=== PATIENT | female | born 1965 | race Caucasian/White ===

== ENCOUNTER 2019-12-05 08:29 | Inpatient (IN) | payer OTHER ==
[2019-12-05] MEDS ORDERED: NALOXONE 0.4 MG/ML 1 ML VIAL IV PRN (10:17)
[2019-12-05] MEDS ORDERED: FUROSEMIDE 10 MG/ML 4 ML VIAL IV STA (10:19)
[2019-12-05] MEDS ORDERED: HEPARIN SODIUM,PORCINE 5,000 UNIT/ML 1 ML VIAL IV PRN (10:26)
[2019-12-05] MEDS ORDERED: HEPARIN SOD,PORK IN 0.45% NACL 25,000 UNIT in 0.45% NACL 1 250ML.BAG IV SCH (10:30)
--- NOTE | 2019-12-05 10:30 | XR ---
EXAMINATION TYPE: XR chest 1V DATE OF EXAM: 12/05/2019 HISTORY: chf. REFERENCE: Previous study dated 03/04/2016. FINDINGS: The heart is enlarged. There is increased density behind the heart. The difficult to exclud e a left lower lobe infiltrate. There is blunting of the left CP angle and I could not exclude an eff usion. IMPRESSION: 1. CARDIOMEGALY. 2. LEFT BASILAR AIRSPACE DISEASE. I COULD NOT EXCLUDE A LEFT-SIDED EFFUSION.
[2019-12-05 10:36] LABS: ABG HCO3 23 mmol/L (21-25); ABG PCO2 38 mmHg (35-45); ABG PH 7.39 (7.35-7.45); ABG PO2 231 mmHg (83-108); ABG TCO2 24 mmol/L (19-24); Allen Test Performed? Yes
[2019-12-05] MEDS ORDERED: ALPRAZolam 0.5 MG TAB PO PRN (11:02)
[2019-12-05] MEDS ORDERED: NITROGLYCERIN SL TABS 0.4 MG TAB SUBLINGUAL PRN (11:02)
[2019-12-05] MEDS ORDERED: SODIUM CHLORIDE 0.9% 1,000 ML in EMPTY BAG 1 BAG IV ONE (11:02)
[2019-12-05] MEDS ORDERED: ASPIRIN 325 MG TAB PO STA (11:02)
[2019-12-05] MEDS ORDERED: ATORVASTATIN 80 MG TAB PO STA (11:02)
[2019-12-05 11:10] LABS: Basophils % (A) 0 %; Eosinophils # (A) 0.1 k/uL (0-0.7); Eosinophils % (A) 1 %; HCT 49.8 % (34.0-46.0); HGB 15.4 gm/dL (11.4-16.0); Hypochromasia Moderate; Lymphocytes # (A) 2.4 k/uL (1.0-4.8); Lymphocytes % (A) 17 %; MCHC 30.9 g/dL (31.0-37.0); MCV 100.1 fL (80.0-100.0); Macrocytosis Slight; Mean Platelet Volume 8.6; Monocytes # (A) 0.4 k/uL (0-1.0); Monocytes % (A) 3 %; Neutrophils # (A) 11.2 k/uL (1.3-7.7); Neutrophils % (A) 79 %; Platelet Count 203 k/uL (150-450); RBC 4.97 m/uL (3.80-5.40); RDW 14.9 % (11.5-15.5); WBC 14.3 k/uL (3.8-10.6)
[2019-12-05 11:21] LABS: Calcium 9.3 mg/dL (8.4-10.2); Potassium 4.2 mmol/L (3.5-5.1)
[2019-12-05 11:25] LABS: Partial Thromboplastin Time 34.2 sec (22.0-30.0); Prothrombin Time 10.5 sec (9.0-12.0)
[2019-12-05] MEDS ORDERED: IPRATROPIUM-ALBUTEROL 3 ML NEB INHALATION PRN (11:29)
--- NOTE | 2019-12-05 11:29 | P.CNPUL ---
History of Present Illness Consult date: 12/05/19 Requesting physician: Ceferino Ashley Reason for consult: dyspnea Chief complaint: Shortness of breath History of present illness: This is a 53-year-old female with known history of COPD, tobacco dependence syndrome, patient presented to [facility] on 12/04/19 with 10 days history of increased shortness of breath. Patient had profound dyspnea on exertion. No cough no wheezing no fever no chills no hemoptysis. Her shortness of breath has become significantly pronounced over the last 10 days. Patient was seen in the ER at [facility], and workup included a chest x- ray which showed cardiomegaly and small left pleural effusion. EKG showed no significant findings, her troponin was slightly elevated with elevated BNP level. Patient was admitted, placed on bronchodilators, Solu-Medrol, aspirin, beta blockers, IV heparin, and she was seen by many consultants while inpatient including cardiology and pulmonary. Her echocardiogram showed severe LV systolic and diastolic dysfunction and ejection fraction was noted to be about 10%. She was also noted to have some pulmonary hypertension with right-sided pressures in the range of 46. Considering her profound LV dysfunction, Dr. Barrett recommended transferring the patient to [facility], and she is scheduled to undergo cardiac catheterization this morning. Upon arrival to our unit, the chest x-ray was done, again showed mostly cardiomegaly, left pleural effusion, and left lower lobe atelectasis. ABG done upon arrival also showed a pO2 of 231 pCO2 of 38 pH of 7.39 and this was on the percent nonrebreather mask. Hence patient was switched to 2 L nasal cannula. Patient denies any previous cardiac history except for history of hypertension. Denies any recent use history of myocardial infarction and she denies any history of alcoholism. Patient is at least a [id number] smoker. Does not drink any alcohol or use any drugs. Review of Systems Constitutional: Weakness fatigue, no fever, no chills, no weight loss. HEENT: Negative. Cardiac: As noted in HPI. Patient denies any chest pain, denies any palpitations, denies any syncope. Pulmonary: As noted in HPI mostly shortness of breath with any activity for the last 10 days. GI: Denies any nausea vomiting abdominal pain melena or hematemesis. Genitourinary: Negative. Musculoskeletal: Negative. Skin: Negative. Endocrine: Negative denies any heat or cold intolerance. Hematologic: Denies any clotting bleeding or bruising Psychiatric: Denies any symptoms of depression. Past Medical History Past Medical History: Asthma, Hypertension History of Any Multi-Drug Resistant Organisms: None Reported Past Surgical History: Cholecystectomy, Hysterectomy Additional Past Surgical History / Comment(s): breast reduction Past Psychological History: No Psychological Hx Reported Smoking Status: Current every day smoker Past Alcohol Use History: None Reported Past Drug Use History: None Reported Medications and Allergies Home Medications Medication Instructions Recorded Confirmed Type Albuterol Inhaler (Mhu) [Ventolin 2 puff INHALATION Q4HR PRN #1 03/04/16 Rx Hfa Inhaler (Mhu)] inhaler Albuterol Inhaler (Mhu) [Ventolin 1 - 2 puff INHALATION RT-Q6H PRN 03/04/16 03/04/16 History Hfa Inhaler] Albuterol Nebulized [Ventolin 2.5 mg INHALATION Q4H #50 nebu 03/04/16 Rx Nebulized] Albuterol Nebulized [Ventolin 2.5 mg INHALATION RT-Q4H PRN 03/04/16 03/04/16 History Nebulized] predniSONE 50 mg PO DAILY #5 tab 03/04/16 Rx Allergies Allergy/AdvReac Type Severity Reaction Status Date / Time egg AdvReac Nausea & Verified 03/04/16 19:26 Vomiting & Diarrhea Physical Exam Vitals: Intake and Output 12/04/19 12/05/19 12/05/19 22:59 06:59 14:59 Other: Weight 75.8 kg Physical Exam: Revealed 53-year-old female in [id number] respiratory distress. Head: Atraumatic, normocephalic. HEENT:[Neck is supple.] [No neck masses.] [No thyromegaly.] [No JVD.] Chest: [Diminished breath sounds especially at the left base, minimal wheezing on forced expiratory maneuver only. Cardiac Exam: [Normal S1 and S2, no S3 gallop, no murmur.] Abdomen: [Soft, nontender, no megaly, no rebound, no guarding, normal bowel sounds.] Extremities: [No clubbing, no edema, no cyanosis.] Neurological Exam: [No focal neurologic deficit.] Alert and oriented 3. Psychiatric: Anxious, blunt affect, normal mental status examination. Skin: Multiple tattoos all over, otherwise unremarkable. Musculoskeletal: No limitation in range of motion and no deformities. Results - Laboratory Findings CBC and BMP: 12/05/19 10:44 ABG ABG pH 7.39 (7.35-7.45) 12/05/19 10:34 ABG pCO2 38 mmHg (35-45) 12/05/19 10:34 ABG pO2 231 mmHg (83-108) H 12/05/19 10:34 ABG O2 Saturation 98.0 % (94-97) H 12/05/19 10:34 Abnormal lab findings: Abnormal Labs 12/05/19 12/05/19 10:34 10:44 WBC 14.3 H Hct 49.8 H MCV 100.1 H MCHC 30.9 L Neutrophils # 11.2 H ABG pO2 231 H ABG O2 Saturation 98.0 H - Diagnostic Findings Chest x-ray: image reviewed (As noted in HPI.) Assessment and Plan Assessment: Impression: Shortness of breath secondary to severe systolic and diastolic congestive heart failure and LV dysfunction. Ejection fraction is 10-20%. Possible ischemic cardiomyopathy and LV dysfunction, patient is undergoing cardiac catheterization in the next couple of hours. Acute kidney injury suspected cardiorenal syndrome, unless proven otherwise. History of benign essential hypertension. Small left pleural effusion, felt to be cardiac unless for otherwise. History of underlying COPD, presently inactive. Her shortness of breath seems to be mostly cardiac in nature. Tobacco dependence syndrome. Recommendation: Agree with the present treatment plan as per cardiology. Patient is scheduled for cardiac catheterization in the next couple of hours. Continue diuretics. Continue beta blockers. Continue bronchodilators. Ordered d-dimer, consider CT angiogram of the chest, in the meantime the patient is on heparin Continue GI and DVT prophylaxis. Repeat chest x-ray in a.m. We'll continue to follow, will review the results of the cardiac catheterization once available. An make further recommendations accordingly. Time with Patient: Greater than 30
[2019-12-05] MEDS ORDERED: IV FLUID CONTINUATION 1,000 ML IV ONE (12:55)
[2019-12-05] MEDS ORDERED: VERAPAMIL 2.5 MG/ML 2 ML AMP ONE (12:56)
[2019-12-05] MEDS ORDERED: HEPARIN SODIUM 1,000 UN/ML (10ML VL) ONE (12:56)
[2019-12-05] MEDS ORDERED: fentaNYL (PF) 50 MCG/ML 2 ML AMP ONE (12:56)
[2019-12-05] MEDS ORDERED: LIDOCAINE 1% INJ 10MG/ML (20 ML MDV) ONE (12:56)
[2019-12-05 13:06] LABS: Appearance,Urine Clear (Clear); Bilirubin,Urine Negative (Negative); Blood,Urine Trace (Negative); Color,Urine Yellow; Glucose,Urine (UA) Negative (Negative); Ketones,Urine Negative (Negative); Leukocyte Esterase,Urine Negative (Negative); Nitrite,Urine Negative (Negative); PH, Urine 5.5 (5.0-8.0); Protein,Urine Negative (Negative); RBC,Urine 1 /hpf (0-5); Squamous Epithelial Cell,Urine <1 /hpf (0-4); WBC,Urine <1 /hpf (0-5)
[2019-12-05] MEDS ORDERED: fentaNYL (PF) 50 MCG/ML 2 ML AMP IV ONE (13:06)
[2019-12-05] MEDS ORDERED: LIDOCAINE 1% INJ 10MG/ML (20 ML MDV) SQ ONE (13:08)
[2019-12-05] MEDS ORDERED: VERAPAMIL SYRINGE (5 MG/10 ML) INTRAARTER ONE (13:10)
[2019-12-05] MEDS ORDERED: MIDAZOLAM 2 MG/2 ML VIAL IVP ONE (13:11)
[2019-12-05] MEDS ORDERED: HEPARIN SODIUM 1,000 UN/ML (10ML VL) IV ONE ×2 (13:16)
[2019-12-05] MEDS ORDERED: IOPAMIDOL-370 125ML BTL INJ ONE (13:18)
[2019-12-05] MEDS ORDERED: FLUMAZENIL 0.1 MG/ML 5 ML VIAL IVP ONE ×2 (13:20→13:22)
[2019-12-05] MEDS ORDERED: RX INFO: IV CONTRAST WAS GIVEN 1 EACH MISC MISCELLANE PRN (13:25)
[2019-12-05] MEDS ORDERED: SODIUM CHLORIDE 0.9% 1,000 ML IV SCH (13:30)
--- NOTE | 2019-12-05 13:36 | P.HPIM ---
History of Present Illness H&P Date: 12/05/19 Chief Complaint: Non-ST elevation IN 53-year-old female with known history of COPD, presented to [facility] on 12/04/19 with increased shortness of breath. Patient had profound dyspnea on exertion. Patient was seen in the ER at [facility], and workup included a chest x-ray which showed cardiomegaly and small left pleural effusion. EKG showed no significant findings, her troponin was slightly elevated with elevated BNP level. Patient was admitted, placed on bronchodilators, Solu-Medrol, aspirin, beta blockers, IV heparin, and she was seen by many consultants while inpatient including cardiology and pulmonary. Her echocardiogram showed severe LV systolic and diastolic dysfunction and ejection fraction was noted to be about 10%. Cardiology recommended transferring the patient to [facility], and she is scheduled to undergo cardiac catheterization this morning. Upon arrival to ICU, the chest x-ray was done, again showed mostly cardiomegaly, left pleural effusion, and left lower lobe atelectasis. ABG done upon arrival also showed a pO2 of 231 pCO2 of 38 pH of 7.39 and this was on the percent nonrebreather mask. Hence patient was switched to 2 L nasal cannula. Patient denies any previous cardiac history except for history of hypertension. Review of Systems REVIEW OF SYSTEMS: CONSTITUTIONAL: No fever, no malaise, no fatigue. HEENT: No recent visual problems or hearing problems. Denied any sore throat. CARDIOVASCULAR: No chest pain, orthopnea, PND, no palpitations, no syncope. PULMONARY: No shortness of breath, no cough, no hemoptysis. GASTROINTESTINAL: No diarrhea, no nausea, no vomiting, no abdominal pain. NEUROLOGICAL: No headaches, no weakness, no numbness. HEMATOLOGICAL: Denies any bleeding or petechiae. GENITOURINARY: Denies any burning micturition, frequency, or urgency. MUSCULOSKELETAL/RHEUMATOLOGICAL: Denies any joint pain, swelling, or any muscle pain. ENDOCRINE: Denies any polyuria or polydipsia. The rest of the 14-point review of systems is negative. Past Medical History Past Medical History: Asthma, Hypertension History of Any Multi-Drug Resistant Organisms: None Reported Past Surgical History: Cholecystectomy, Hysterectomy Additional Past Surgical History / Comment(s): breast reduction Past Psychological History: No Psychological Hx Reported Smoking Status: Current every day smoker Past Alcohol Use History: None Reported Past Drug Use History: None Reported Medications and Allergies Home Medications Medication Instructions Recorded Confirmed Type No Known Home Medications 12/05/19 12/05/19 History Allergies Allergy/AdvReac Type Severity Reaction Status Date / Time egg AdvReac Nausea & Verified 12/05/19 12:00 Vomiting & Diarrhea Physical Exam Vitals: Vital Signs Temp Pulse Resp BP Pulse Ox 12/05/19 12:15 96.6 F L 12/05/19 12:14 95 F L 12/05/19 11:50 73 9 L 95 12/05/19 11:40 61 14 95 12/05/19 11:30 70 4 L 95 12/05/19 11:20 61 6 L 97 12/05/19 11:10 62 5 L 136/94 97 12/05/19 11:00 76 30 H 95 12/05/19 10:50 67 17 97 12/05/19 10:40 64 5 L 99 12/05/19 10:30 73 21 97 12/05/19 10:20 78 11 L 97 12/05/19 10:10 73 18 91 L 12/05/19 10:02 97.7 F 75 19 121/95 92 L Intake and Output 12/04/19 12/05/19 12/05/19 22:59 06:59 14:59 Intake Total 85.654 Output Total 500 Balance -414.346 Intake: IV 75.8 Sodium Chloride 0.9% 1, 75.8 000 ml In Empty Bag 1 bag @ 1 ML/KG/HR 75.8 mls/hr IV .[id number] Rx#: [id number] Intake, IV Titration 9.854 Amount Heparin Sod,Pork in 0.45% 9.854 NaCl 25,000 unit In 0.45 % NaCl 1 250ml.bag @ 12 UNITS/KG/HR 9.096 mls/hr IV .Q24H [facility] Rx#: [id number] Output: Urine 500 Other: # Voids 1 Weight 75.8 kg Physical Exam: Revealed 53-year-old female in isrx-li-ejoseabh respiratory distress. Head: Atraumatic, normocephalic. HEENT:[Neck is supple.] [No neck masses.] [No thyromegaly.] [No JVD.] Chest: [Diminished breath sounds especially at the left base, minimal wheezing on forced expiratory maneuver only. Cardiac Exam: [Normal S1 and S2, no S3 gallop, no murmur.] Abdomen: [Soft, nontender, no megaly, no rebound, no guarding, normal bowel sounds.] Extremities: [No clubbing, no edema, no cyanosis.] Neurological Exam: [No focal neurologic deficit.] Alert and oriented 3. Psychiatric: Anxious, blunt affect, normal mental status examination. Skin: Multiple tattoos all over, otherwise unremarkable. Musculoskeletal: No limitation in range of motion and no deformities. Results CBC & Chem 7: 12/05/19 10:44 12/05/19 10:44 Labs: Abnormal Lab Results - Last 24 Hours (Table) 12/05/19 12/05/19 12/05/19 Range/Units 10:34 10:44 10:44 WBC 14.3 H (3.8-10.6) k/uL Hct 49.8 H (34.0-46.0) % MCV 100.1 H (80.0-100.0) fL MCHC 30.9 L (31.0-37.0) g/dL Neutrophils # 11.2 H (1.3-7.7) k/uL APTT 34.2 H (22.0-30.0) sec ABG pO2 231 H (83-108) mmHg ABG O2 Saturation 98.0 H (94-97) % BUN (7-17) mg/dL Creatinine (0.52-1.04) mg/dL Glucose (74-99) mg/dL 12/05/19 Range/Units 10:44 WBC (3.8-10.6) k/uL Hct (34.0-46.0) % MCV (80.0-100.0) fL MCHC (31.0-37.0) g/dL Neutrophils # (1.3-7.7) k/uL APTT (22.0-30.0) sec ABG pO2 (83-108) mmHg ABG O2 Saturation (94-97) % BUN 34 H (7-17) mg/dL Creatinine 1.11 H (0.52-1.04) mg/dL Glucose 132 H (74-99) mg/dL Assessment and Plan Assessment: 1. Dyspnea; severe systolic/diastolic CHF - Pulmonary service is following and is recommending checking d-dimer along with CT angiogram of the chest - Patient is currently on IV heparin for non-ST elevation IN 2. Severe cardiomyopathy; possibly ischemic; patient is scheduled for left heart catheterization today; continue with aspirin, statin therapy, beta blockers 3. Acute renal injury; cautious IV fluid hydration with normal saline at rate of 75 mL an hour; cardiology is following and patient is started on Aldactone 25 mg daily; we will continue to monitor strict KEYUR's, daily weights, renal function and electrolytes; continue to avoid nephrotoxic agents and hypotension 4. Hypertension; Lopressor 25 mg twice a day, lisinopril 5 mg daily, Aldactone 25 mg daily 5. COPD; not in exacerbation 6. Hyperlipidemia; Lipitor 80 mg by mouth daily at bedtime DVT prophylaxis; SCDs/systemic anticoagulation with heparin CODE STATUS; full code Time with Patient: Greater than 30
[2019-12-05] MEDS: SPIRONOLACTONE 25 MG TAB PO SCH (15:03)
[2019-12-05] MEDS: FUROSEMIDE 20 MG TAB PO SCH (15:38)
--- NOTE | 2019-12-05 17:14 | CC ---
CARDIAC CATHETERIZATION REPORT Mrs Starks is a 53-year-old female with known history of chronic tobacco use, prior history of hypertension who presented to [facility] with symptoms of congestive heart failure, chest tightness with minimal troponin elevated elevation. She was noted to have severe cardiomyopathy by echocardiography. In view of her presentation and her symptoms, recommendation made regarding cardiac catheterization. The procedures, risks, and complications were discussed with the patient who is in full understanding and agreement. PROCEDURE DETAILS: Patient was brought to laborer driver in a fasting semi-sedated state after receiving fentanyl and Benadryl and achieving moderate conscious sedated state. Using Xylocaine anesthesia and Seldinger technique, a 6-Monegasque sheath was introduced in the right radial artery. Selective right and left coronary angiography performed using 5-Monegasque 3 and half bend right and left Berlin catheter. Multiple views of the coronary arteries including hemiaxial views were obtained. The 5-Monegasque Berlin catheter was used to cross the aortic valve and pressures were calculated. Following that, catheter and sheath were removed. Hemostasis was obtained with deployment of a TR band. There was no immediate complications. Patient is returned to her room in stable condition. Of note, the patient received 4000 units of intravenous heparin as well as intra- arterial verapamil. FINDINGS: FLUOROSCOPY: There is calcification involving all the coronary arteries. SELECTIVE CORONARY ANGIOGRAPHY: LEFT MAIN: This is a short size vessel large in caliber bifurcating into left circumflex, left anterior descending artery, left main coronary artery has no evidence of high-grade stenosis. LEFT ANTERIOR DESCENDING ARTERY: This is a large-sized vessel reaching to the apex with a wraparound apex segment giving rise to 3 diagonal branch. The second one is largest in caliber the left and descending artery throughout its course has diffuse intimal disease with area of stenosis up to 30% to 40% without any discrete high-grade stenosis. LEFT CIRCUMFLEX: This is a nondominant vessel giving rise to 2 obtuse marginal branches of large caliber. The left circumflex has diffuse intimal disease up to 30% to 40% without any evidence of high-grade stenosis. RIGHT CORONARY ARTERY: This is a dominant vessel, moderate in caliber, bifurcating distally into PDA and posterolateral segment and branches. The right coronary artery has diffuse intimal disease up to 30 percent. HEMODYNAMICS: There was no gradient across the aortic valve. The left ventricle end-diastolic pressure was 20-24 mmHg. CONCLUSION: 1. Calcified coronary arteries. 2. Moderate triple-vessel coronary disease. RECOMMENDATIONS: In view of findings and anatomy, I recommend proceeding with continued medical therapy, optimizing her treatment. Her findings are consistent with nonischemic cardiomyopathy. If there is no improvement in left ventricular systolic function, she will be a candidate for ICD implantation. Those findings and recommendations were discussed with the patient. She is in full understanding and agreement. RADHA / JOANN: [id number] /
[2019-12-05] MEDS ORDERED: NITROGLYCERIN OINT 1 INCH/GM PACKET TOPICAL SCH (18:00)
[2019-12-05] MEDS: METOPROLOL TARTRATE 25 MG TAB PO SCH (20:39)
[2019-12-05] MEDS ORDERED: FUROSEMIDE 10 MG/ML 2 ML VIAL IV SCH (21:00)
[2019-12-05] MEDS ORDERED: ATORVASTATIN 40 MG TAB PO SCH (21:00)
[2019-12-05] MEDS: ALPRAZolam 0.25 MG TAB PO PRN (23:45)
[2019-12-06 05:59] LABS: Basophils # (A) 0.1 k/uL (0-0.2); Basophils % (A) 1 %; Eosinophils # (A) 0.1 k/uL (0-0.7); Eosinophils % (A) 1 %; HCT 50.2 % (34.0-46.0); HGB 15.7 gm/dL (11.4-16.0); Hypochromasia Marked; Lymphocytes # (A) 4.2 k/uL (1.0-4.8); Lymphocytes % (A) 29 %; MCH 31.6 pg (25.0-35.0); MCHC 31.2 g/dL (31.0-37.0); MCV 101.5 fL (80.0-100.0); Macrocytosis Slight; Monocytes # (A) 0.7 k/uL (0-1.0); Monocytes % (A) 5 %; Neutrophils # (A) 9.5 k/uL (1.3-7.7); Neutrophils % (A) 64 %; Platelet Count 207 k/uL (150-450); RBC 4.95 m/uL (3.80-5.40); RDW 15.1 % (11.5-15.5); WBC 14.7 k/uL (3.8-10.6)
[2019-12-06 06:51] LABS: Calcium 9.2 mg/dL (8.4-10.2); Potassium 4.7 mmol/L (3.5-5.1)
--- NOTE | 2019-12-06 07:24 | PN ---
PROGRESS NOTE Mrs. Starks is a 53-year-old female with history of chronic tobacco use, history of hypertension who presented to [facility] with an acute episode of dyspnea was noted to have congestive heart failure with severely impaired left ventricular systolic function. She was transferred to [facility], underwent cardiac catheterization, was found to have [id number] triple-vessel coronary disease. She is feeling better today. She still has some dyspnea. No chest pain. No dizziness. No palpitation. She denies any nausea. She is in sinus mechanism. She continued to be on aspirin once a day, Lipitor 40 mg daily, Lasix 20 mg twice a day, Zestril 5 mg daily, metoprolol tartrate 25 mg twice a day and Aldactone 25 mg daily. PHYSICAL EXAMINATION: Blood pressure running in the one teens to 120s with the heart rate in 60s. LUNGS: A few crackles at the bases. HEART: Regular rate and rhythm. S1, S2. No S3. No rub. ABDOMEN: Soft, nontender. EXTREMITIES: No edema. Right radial pulse intact. LAB DATA: Lab data revealed hemoglobin of 15.7. BUN and creatinine 38 and 1.03. IMPRESSION: 1. Severe nonischemic cardiomyopathy. 2. Mild to moderate coronary artery disease. 3. History of chronic tobacco use. 4. Hypertension. RECOMMENDATION: I will increase the dose of her lisinopril. Increase her activity. Discontinue her Augustin. I would expect she should be able to be transferred to telemetry floor and depending on her progress, further recommendation will be made. MMODL / IJN: [id number] /
[2019-12-06] MEDS: METOPROLOL TARTRATE 25 MG TAB PO SCH ×2 (08:26→20:33)
[2019-12-06] MEDS: LISINOPRIL 5 MG TAB PO SCH ×2 (08:26→20:33)
[2019-12-06] MEDS: ASPIRIN 81 MG PO SCH (08:26)
[2019-12-06] MEDS: SPIRONOLACTONE 25 MG TAB PO SCH (08:27)
[2019-12-06] MEDS: FUROSEMIDE 20 MG TAB PO SCH ×2 (08:27→15:40)
[2019-12-06] MEDS ORDERED: ASPIRIN 325 MG TAB PO SCH (09:00)
[2019-12-06] MEDS ORDERED: PANTOPRAZOLE 40 MG/10 ML VIAL IV SCH (09:00)
[2019-12-06] MEDS ORDERED: LISINOPRIL 5 MG TAB PO SCH (09:00)
--- NOTE | 2019-12-06 12:57 | PN ---
PROGRESS NOTE A 53-year-old female who was admitted to the hospital on December 04. 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 Apparently, no interventions were done. She apparently has a history of both systolic and diastolic heart failure. Ejection fraction is between 10%-20%. She has a history of ischemic cardiomyopathy, acute kidney injury, cardiorenal syndrome, benign essential hypertension, small left-sided pleural effusion, underlying inactive COPD, and tobacco dependence syndrome. In addition, the patient apparently has used cocaine in the past. Currently, she is resting comfortably. She is on room air. She is not receiving any IV fluids. The cardiac catheterization done yesterday by Dr. Barrett revealed calcified coronary arteries and only moderate triple-vessel coronary artery disease. Medical management is recommended. Also, because her ejection fraction is so low, an AICD would be indicated potentially. Currently, the patient has no major complaints. Vital signs are reviewed, temperature 98.2, heart rate 59, respiratory rate 18, blood pressure 183/84, room air and saturations is 98%. Appears in no acute distress. HEENT: Examination is grossly unremarkable. No nasal prongs noted. NECK: Supple, full range of motion. No adenopathy, thyromegaly or neck vein distention. CARDIOVASCULAR: Examination reveals regular rhythm and rate. Heart rate 60 beats per minute. Heart sounds are distant. No distinct murmurs noted. LUNGS: Reveal mostly clear breath sounds. A few scattered rhonchi. No wheezes or crackles. Abdomen soft bowel sounds are heard. EXTREMITIES: Intact. No cyanosis, clubbing, or edema. SKIN: Without rash. NEUROLOGIC: Examination is brief but nonfocal. LABS: Reviewed. White count 14.7, hemoglobin 15.7, hematocrit 50.2, platelet count 207,000, PT, INR, PTT is all essentially within normal limits. D-dimer 0.53. Blood gases showed a pO2 of 231, pCO2 of 38k pH of 7.39. That was yesterday on 100%. Sodium 138, potassium 4.7, chloride 107, CO2 is 22, anion gap is 9. BUN and creatinine were 38 and 1.03. Urine is clean. Chest x-ray shows some cardiomegaly, and left basilar airspace disease with a small left-sided effusion. Microbiology is all negative. MEDICATIONS: Reviewed. Currently, the patient is on Xanax, aspirin, Lipitor, Lasix, DuoNeb, lisinopril, metoprolol, Narcan, sublingual nitroglycerin, Protonix, and Aldactone. ASSESSMENT: 1. Shortness of breath, improved, secondary to severe systolic and diastolic congestive heart failure with ejection fraction of 10%-20%. 2. Ischemic cardiomyopathy with LV dysfunction. The patient does have moderate triple- vessel coronary artery disease, and catheterization was performed yesterday without additional stenting. 3. Acute kidney injury. 4. Possible cardiorenal syndrome. 5. History of benign essential hypertension. 6. Small left-sided pleural effusion. 7. History of underlying COPD, probably secondary to ongoing tobacco use and tobacco dependence syndrome. PLAN: Currently, the patient is a candidate for 3 [place]. She is doing reasonably well. Not receiving any fluids or supplemental oxygen. Will continue to follow as needed. Prognosis is very guarded. She will be evaluated by Cardiology for automatic implantable cardiac defibrillator. MMODL / IJN: [id number] /
--- NOTE | 2019-12-06 13:18 | P.PN ---
Subjective 53-year-old the female was admitted for heart failure with EF of around 10-20% EF dizziness finding because of which the patient underwent cardiac c atheterization which showed mild atherosclerotic vascular disease but no significant atherosclerotic occlusive disease that can explain her heart failure. Patient shortness of breath significantly improved patient is presently on low-dose of oral Lasix along with beta lorenzo and lisinopril. Patient is being transferred E. Her coronaries several calcified with only some moderate disease in all 3 coronaries. Constitutional: Denied any fatigue denied any fever. Cardio vascular: denied any chest pain, palpitations Gastrointestinal denied any nausea vomiting Pulmonary: Denied any shortness of breath cough Neurologic denied any new focal deficits All inpatient medications were reviewed and appropriate changes in these medications as dictated in the interval history and assessment and plan. Objective - Vital Signs Vital signs: Vital Signs Temp 93 F L 12/06/19 12:00 Pulse 59 L 12/06/19 12:00 Resp 22 12/06/19 12:00 BP 121/71 12/06/19 12:00 Pulse Ox 97 12/06/19 12:00 Intake & Output 12/05/19 12/06/19 12/06/19 18:59 06:59 18:59 Intake Total 485.654 560 0 Output Total 870 600 75 Balance -384.346 -40 -75 Weight 75.8 kg 74 kg Intake: IV 475.8 560 0 Sodium Chloride 0.9% 1, 375.8 560 0 000 ml In Empty Bag 1 bag @ 1 ML/KG/HR 75.8 mls/hr IV .[id number] ONE Rx#: [id number] Intake, IV Titration 9.854 Amount Heparin Sod,Pork in 0.45% 9.854 NaCl 25,000 unit In 0.45 % NaCl 1 250ml.bag @ 12 UNITS/KG/HR 9.096 mls/hr IV .Q24H [facility] Rx#: [id number] Output: Urine 870 600 75 Other: Voiding Method Indwelling Catheter Indwelling Catheter Toilet # Voids 1 - Exam PHYSICAL EXAMINATION: GENERAL: The patient is alert and oriented x3, not in any acute distress. Well developed, well nourished. HEENT: Pupils are round and equally reacting to light. EOMI. No scleral icterus. No conjunctival pallor. Normocephalic, atraumatic. No pharyngeal erythema. No thyromegaly. CARDIOVASCULAR: S1 and S2 present. No murmurs, rubs, or gallops. PULMONARY: Chest is clear to auscultation, no wheezing or crackles. ABDOMEN: Soft, nontender, nondistended, normoactive bowel sounds. No palpable organomegaly. MUSCULOSKELETAL: No joint swelling or deformity. EXTREMITIES: No cyanosis, clubbing, or pedal edema. NEUROLOGICAL: Gross neurological examination did not reveal any focal deficits. SKIN: No rashes. - Labs CBC & Chem 7: 12/06/19 05:21 12/06/19 05:21 Labs: Abnormal Lab Results - Last 24 Hours (Table) 12/06/19 12/06/19 Range/Units 05:21 05:21 WBC 14.7 H (3.8-10.6) k/uL Hct 50.2 H (34.0-46.0) % MCV 101.5 H (80.0-100.0) fL Neutrophils # 9.5 H (1.3-7.7) k/uL BUN 38 H (7-17) mg/dL Glucose 117 H (74-99) mg/dL Assessment and Plan Plan: -Congestive heart failure nonischemic cardiomyopathy with acute exacerbation patient is presently euvolemic continue with the above-mentioned medications for heart failure. Her systolic dysfunction is probably acute on chronic with EF of around 10-20% -Acute renal failure feel azotemia secondary to kidney failure which improved at this time -Hypertension -Pleural effusion secondary to heart failure -Nicotine abuse with possible COPD without any acute exacerbation at this time -Hyperlipidemia continue with the statin
[2019-12-06] MEDS: ATORVASTATIN 40 MG TAB PO SCH (20:33)
[2019-12-07 05:51] LABS: Basophils # (A) 0.1 k/uL (0-0.2); Basophils % (A) 1 %; Eosinophils # (A) 0.2 k/uL (0-0.7); Eosinophils % (A) 2 %; HCT 45.1 % (34.0-46.0); HGB 14.7 gm/dL (11.4-16.0); Lymphocytes # (A) 3.2 k/uL (1.0-4.8); Lymphocytes % (A) 36 %; MCH 31.8 pg (25.0-35.0); MCHC 32.6 g/dL (31.0-37.0); MCV 97.6 fL (80.0-100.0); Macrocytosis Slight; Mean Platelet Volume 8.7; Monocytes # (A) 0.4 k/uL (0-1.0); Monocytes % (A) 5 %; Neutrophils # (A) 4.9 k/uL (1.3-7.7); Neutrophils % (A) 55 %; Platelet Count 139 k/uL (150-450); RBC 4.62 m/uL (3.80-5.40); RDW 15.4 % (11.5-15.5); WBC 8.8 k/uL (3.8-10.6)
[2019-12-07 06:02] LABS: Calcium 8.8 mg/dL (8.4-10.2); Potassium 3.8 mmol/L (3.5-5.1)
[2019-12-07] MEDS: PANTOPRAZOLE 40 MG TABLET PO SCH (06:48)
--- NOTE | 2019-12-07 07:32 | PN ---
PROGRESS NOTE Ms. Starks is a 53-year-old female with a history of hypertension, chronic tobacco use, who presented with symptoms of progressive congestive heart failure and was found to have severe nonischemic cardiomyopathy, underwent cardiac catheterization with no evidence of high-grade stenosis. She is feeling better today. Her breathing is better. She denies any chest pain. No dizziness. No palpitation. She denies any nausea. She continued to be on aspirin once a day, Lipitor 40 mg daily, Lasix 20 mg twice a day, lisinopril 5 mg twice a day, metoprolol 25 mg twice a day and Aldactone 25 mg daily. PHYSICAL EXAMINATION: Blood pressure 138/70 with the heart rate in the 60s. LUNGS: No wheezes. HEART: Regular rate and rhythm. S1, S2. No S3 with systolic murmur. No diastolic murmur. ABDOMEN: Soft, nontender. EXTREMITIES: No edema. LAB DATA: Lab data revealed a hemoglobin of 14.7. BUN and creatinine 34 and 0.93. NT proBNP of 12,700. IMPRESSION: 1. Severe nonischemic cardiomyopathy with symptoms of congestive heart failure. 2. History of hypertension. 3. Chronic tobacco use. RECOMMENDATION: From the cardiac standpoint, I will switch the beta lorenzo to carvedilol, increase her activity, transfer her to telemetry floor. If she is doing well, I would expect she should be able to be discharged home tomorrow and be evaluated as an outpatient regarding the need to undergo an ICD implantation. RADHA / ASUNCION: [id number] /
[2019-12-07] MEDS: LISINOPRIL 5 MG TAB PO SCH ×2 (08:29→21:48)
[2019-12-07] MEDS: CARVEDILOL 12.5 MG TAB PO SCH ×2 (08:29→16:36)
[2019-12-07] MEDS: SPIRONOLACTONE 25 MG TAB PO SCH (08:30)
[2019-12-07] MEDS: FUROSEMIDE 20 MG TAB PO SCH ×2 (08:30→15:35)
[2019-12-07] MEDS: ASPIRIN 81 MG PO SCH (08:30)
--- NOTE | 2019-12-07 12:16 | PN ---
PROGRESS NOTE PULMONARY/CRITICAL CARE PROGRESS NOTE: DATE OF SERVICE: 12/07/2019 A 53-year-old female admitted to the hospital on December 05, 2019. She apparently came from [facility] to [facility]. She went to the [facility] on [facility]. Apparently, she was found to have coronary artery disease, but no interventions were performed. She did have a history of both systolic and diastolic CHF and having an ejection fraction between 10% and 20%. In addition, she has a history of ischemic cardiomyopathy, acute kidney injury, cardiorenal syndrome, benign essential hypertension, small left-sided pleural effusion, and underlying inactive COPD and tobacco dependence syndrome. Currently, they are treating her medically. The only thing that is outstanding is whether not they might place an AICD. Anyway, the patient is currently being evaluated by Cardiology, i.e., Dr. Barrett. From the pulmonary standpoint, she is stable. Her lung disease is inactive at this time. Vital signs are reviewed, temperature 97.4 heart rate 70, respiratory rate 16, blood pressure 135/75 mean 95, room air saturation 96%. She appears in no acute distress. HEENT: Examination is grossly unremarkable. Neck is supple, full range of motion. No adenopathy. Neck veins are flat. CARDIOVASCULAR: Examination reveals regular rhythm and rate. Heart rate 70. Heart sounds are distant. No murmur. S1, S2 normal. LUNGS: Reveal relatively clear breath sounds. No wheezes, rhonchi, or crackles. ABDOMEN: Soft, bowel sounds are heard. EXTREMITIES: Intact. No cyanosis, clubbing, or edema. SKIN: Without rash. NEUROLOGIC: Examination is brief but nonfocal. LABS: Reviewed. CBC is completely normal. Platelet count is low at 139,000. Sodium 138, potassium 3.8, chloride 108, CO2 is 24, anion gap is 6. BUN and creatinine were 34 and 0.93. The most recent N terminal proBNP is 12,700. Microbiology is negative. No new x-rays to report. MEDICATIONS: Reviewed. She is currently on Xanax, aspirin, Lipitor, Coreg, Lasix, DuoNeb p.r.n., Zestril, Narcan, nitroglycerin sublingual p.r.n., Protonix and Aldactone. ASSESSMENT: 1. Shortness of breath, improved, secondary to severe systolic and diastolic congestive heart failure with ejection fraction of only 10%-20%. 2. Ischemic cardiomyopathy with LV dysfunction. The patient does have coronary artery disease, but no stenting was performed. 3. Acute kidney injury. 4. Cardiorenal syndrome. 5. History of benign essential hypertension. 6. Small left-sided pleural effusion. 7. History of inactive COPD. 8. History of ongoing tobacco use with nicotine addiction. PLAN: The patient may be discharged tomorrow. I am not sure if they are planning to do an AICD placement. Additional recommendations and suggestions are forthcoming. She is counseled about the importance of smoking cessation, overall. The patient is an overflow patient. She could go to [address] [place] [address]. Overall prognosis remains guarded. Additional recommendations and suggestions are forthcoming. MMODL / IJN: [id number] /
--- NOTE | 2019-12-07 13:48 | P.PN ---
Subjective 53-year-old the female was admitted for heart failure with EF of around 10-20% EF dizziness finding because of which the patient underwent cardiac c atheterization which showed mild atherosclerotic vascular disease but no significant atherosclerotic occlusive disease that can explain her heart failure. Patient shortness of breath significantly improved patient is presently on low-dose of oral Lasix along with beta lorenzo and lisinopril. Patient is being transferred E. Her coronaries several calcified with only some moderate disease in all 3 coronaries. 12/07/2019 patient denied any shortness of breath. Patient probably undergo AICD placement there are some crackles bilaterally because of which I'll obtain a chest x-ray to rule out any pulmonary edema. Constitutional: Denied any fatigue denied any fever. Cardio vascular: denied any chest pain, palpitations Gastrointestinal denied any nausea vomiting Pulmonary: Denied any shortness of breath cough Neurologic denied any new focal deficits All inpatient medications were reviewed and appropriate changes in these medications as dictated in the interval history and assessment and plan. Objective - Vital Signs Vital signs: Vital Signs Temp 97.4 F L 12/07/19 07:46 Pulse 70 12/07/19 07:46 Resp 16 12/07/19 07:46 BP 135/75 12/07/19 07:46 Pulse Ox 96 12/07/19 07:46 Intake & Output 12/06/19 12/07/19 12/07/19 18:59 06:59 18:59 Intake Total 370 Output Total 75 Balance 295 Weight 72.8 kg Intake: IV 0 Sodium Chloride 0.9% 1, 0 000 ml In Empty Bag 1 bag @ 1 ML/KG/HR 75.8 mls/hr IV .[id number] ONE Rx#: [id number] Oral 120 Tube Feeding 250 Output: Urine 75 Other: Voiding Method Toilet Toilet # Voids 1 2 2 - Exam PHYSICAL EXAMINATION: GENERAL: The patient is alert and oriented x3, not in any acute distress. Well developed, well nourished. HEENT: Pupils are round and equally reacting to light. EOMI. No scleral icterus. No conjunctival pallor. Normocephalic, atraumatic. No pharyngeal erythema. No thyromegaly. CARDIOVASCULAR: S1 and S2 present. No murmurs, rubs, or gallops. PULMONARY: Chest is clear to auscultation, no wheezing or crackles. ABDOMEN: Soft, nontender, nondistended, normoactive bowel sounds. No palpable organomegaly. MUSCULOSKELETAL: No joint swelling or deformity. EXTREMITIES: No cyanosis, clubbing, or pedal edema. NEUROLOGICAL: Gross neurological examination did not reveal any focal deficits. SKIN: No rashes. - Labs CBC & Chem 7: 12/07/19 05:31 12/07/19 05:31 Labs: Abnormal Lab Results - Last 24 Hours (Table) 12/07/19 12/07/19 Range/Units 05:31 05:31 Plt Count 139 L (150-450) k/uL Chloride 108 H (98-107) mmol/L BUN 34 H (7-17) mg/dL Assessment and Plan Plan: -Congestive heart failure nonischemic cardiomyopathy with acute exacerbation patient is presently euvolemic continue with the above-mentioned medications for heart failure. Her systolic dysfunction is probably acute on chronic with EF of around 10-20%. Patient has nonischemic any myopathy and patient will probably undergo AICD placement -Acute renal failure feel azotemia secondary to kidney failure which improved at this time -Hypertension -Pleural effusion secondary to heart failure -Nicotine abuse with possible COPD without any acute exacerbation at this time -Hyperlipidemia continue with the statin
--- NOTE | 2019-12-07 14:10 | XR ---
EXAMINATION TYPE: XR chest 1V DATE OF EXAM: 12/07/2019 COMPARISON: 12/05/2019 INDICATION: CHF TECHNIQUE: Single frontal view of the chest is obtained. FINDINGS: The heart size is mildly prominent. The pulmonary vasculature is normal. There is a small effusion or infiltrate at the left base. There is silhouetting left diaphragm. IMPRESSION: 1. Small left pleural effusion and/or atelectasis at the left diaphragm.
[2019-12-07] MEDS: ATORVASTATIN 40 MG TAB PO SCH (21:48)
[2019-12-07] MEDS: ALPRAZolam 0.25 MG TAB PO PRN (22:31)
[2019-12-07 23:33] VITALS: RESP 18
[2019-12-08 05:41] LABS: Calcium 8.9 mg/dL (8.4-10.2); Potassium 3.5 mmol/L (3.5-5.1)
[2019-12-08 06:28] VITALS: BP 155/83; PULSE 73; TEMP 97.8
[2019-12-08] MEDS ORDERED: POTASSIUM CHLORIDE ER 20 MEQ TAB.ER PO STA (06:28)
[2019-12-08] MEDS: PANTOPRAZOLE 40 MG TABLET PO SCH (06:44)
[2019-12-08] MEDS: CARVEDILOL 12.5 MG TAB PO SCH (06:44)
--- NOTE | 2019-12-08 07:22 | P.PN ---
Subjective Progress Note Date: 12/08/19 Principal diagnosis: Ischemic cardiomyopathy The patient is seen today 12/08/2019 in follow-up in the intensive care unit. She is awake and alert in no acute distress. She is maintaining O2 saturations in the 90s on room air. No IV fluids. She was found to have severe systolic and diastolic congestive heart failure with ejection fraction of 2010-20%. Cardiac catheterization from 12/05/2019 revealed moderate triple-vessel coronary artery disease. Medical management is planned. Most recent chest x-ray revealed a small left pleural effusion and/or atelectasis at the left diaphragm. Otherwise clear. Sodium 1:30. Potassium 3.5. Creatinine 0.97. Objective - Vital Signs Vital signs: Vital Signs Temp 97.8 F 12/08/19 06:27 Pulse 73 12/08/19 06:27 Resp 18 12/08/19 06:27 BP 155/83 12/08/19 06:27 Pulse Ox 92 L 12/08/19 06:27 Intake & Output 12/07/19 12/08/19 12/08/19 18:59 06:59 18:59 Intake Total 420 Output Total 0 Balance 420 Weight 68.8 kg Intake: Oral 420 Output: Urine 0 Other: Voiding Method Toilet # Voids 4 1 - Exam GENERAL EXAM: Alert, active, pleasant 53-year-old female patient, on room air, comfortable in no apparent distress. HEAD: Normocephalic. EYES: Normal reaction of pupils, equal size. NOSE: Clear with pink turbinates. THROAT: No erythema or exudates. NECK: No masses, no JVD. CHEST: No chest wall deformity. LUNGS: Equal air entry with no crackles, wheeze, rhonchi or dullness. CVS: S1 and S2 normal with no audible murmur, regular rhythm. ABDOMEN: No hepatosplenomegaly, normal bowel sounds, no guarding or rigidity. SPINE: No scoliosis or deformity SKIN: No rashes CENTRAL NERVOUS SYSTEM: No focal deficits, tone is normal in all 4 extremities. EXTREMITIES: There is no peripheral edema. No clubbing, no cyanosis. Peripheral pulses are intact. - Labs CBC & Chem 7: 12/07/19 05:31 12/08/19 05:01 Labs: Abnormal Lab Results - Last 24 Hours (Table) 12/08/19 Range/Units 05:01 BUN 27 H (7-17) mg/dL Assessment and Plan Assessment: 1 Acute exacerbation of severe systolic and diastolic congestive heart failure with ejection fraction 10-20%. 2 Moderate coronary triple-vessel disease and is to be treated medically 3 Acute kidney injury secondary to suspected cardiorenal syndrome, recovered 4 Hypertension 5 Chronic tobacco abuse dependence. 6 Chronic obstructive pulmonary disease Plan: The patient was seen and evaluated by Dr. Pryor She is stable from the pulmonary and critical care standpoint Possibly home today if cleared by cardiology Follow-up echocardiogram and possible AICD placement She is again educated regarding the importance of complete smoking cessation I, the cosigning physician, performed a history & physical examination of the patient. Lungs sounds are clear. Maintaining good O2 saturations in the 90s on room air. I discussed the assessment and plan of care with my nurse Sandie edwards. I attest to the above note as dictated by her.
--- NOTE | 2019-12-08 07:34 | PN ---
PROGRESS NOTE Mrs. Starks is a 53-year-old female who presented with symptoms of progressive dyspnea, was found to have severe cardiomyopathy. Her cardiac catheterization revealed mild coronary artery disease. She is doing well this morning. She denies any chest pain. Her breathing has been stable. She denies any dizziness or palpitation. She denies any nausea. Hemodynamically, she is in sinus mechanism and continues to be on aspirin once a day, Lipitor 40 mg daily, Coreg 25 mg twice a day, Lasix 20 mg twice a day, lisinopril 5 mg twice a day and Aldactone 25 mg daily. PHYSICAL EXAMINATION: Blood pressure running in the 140s to 150s with the heart rate in 70s. LUNGS: Clear. HEART: S1, S2 plus S3 with a systolic murmur. No rub. ABDOMEN: Soft, nontender. Positive bowel sounds. EXTREMITIES: No edema. LAB DATA: Lab data revealed BUN and creatinine 27 and 0.97, potassium 3.5. IMPRESSION: 1. Severe nonischemic cardiomyopathy with evidence of congestive heart failure. 2. Mild coronary artery disease. 3. Hypertension. 4. Chronic tobacco use. RECOMMENDATION: I will increase the dose of her Zestril. Continue the rest of her medical regimen. She should be able to be discharged home today and followed as an outpatient. She will have a repeat echocardiogram in 2 months. If she remains with severe left ventricular systolic function then she will be a candidate for ICD implantation. RADHA / ASUNCION: [id number] /
[2019-12-08] MEDS: ASPIRIN 81 MG PO SCH (07:54)
[2019-12-08] MEDS: FUROSEMIDE 20 MG TAB PO SCH (07:54)
[2019-12-08] MEDS: SPIRONOLACTONE 25 MG TAB PO SCH (07:55)
[2019-12-08] MEDS ORDERED: LISINOPRIL 10 MG TAB PO SCH (09:00)
--- NOTE | 2019-12-08 13:56 | P.DS ---
Providers Date of admission: 12/05/19 09:44 Attending physician: Ceferino Ashley MD Consults: 12/05/19 10:16 Consult Physician Routine Consulting Provider: Rachel Barrett Consult Reason/Comments: cardiac management Do you want consulting provider notified?: Already Contacted Placement Type Exists?: Yes Consult Physician Stat Consulting Provider: Kalani Martínez Consult Reason/Comments: ICU management Do you want consulting provider notified?: Already Contacted Placement Type Exists?: Yes Primary care physician: Landry Mckeon [facility] Course: 53-year-old the female was admitted for heart failure with EF of around 10-20% EF dizziness finding because of which the patient underwent cardiac catheterization which showed mild atherosclerotic vascular disease but no significant atherosclerotic occlusive disease that can explain her heart failure. Patient shortness of breath significantly improved patient is presently on low-dose of oral Lasix along with beta lorenzo and lisinopril. Patient is being transferred E. Her coronaries several calcified with only some moderate disease in all 3 coronaries. 12/07/2019 patient denied any shortness of breath. Patient probably undergo AICD placement there are some crackles bilaterally because of which I'll obtain a chest x-ray to rule out any pulmonary edema. 12/08/2019 Patient doesn't have any wide complexes on EKG because of which are cardiology is not running on any AICD patient will be discharged today and had her echocardiogram will be repeated in 3 months any. Depending on recovery repeat echocardiogram further management within a CT head that time. PHYSICAL EXAMINATION: GENERAL: The patient is alert and oriented x3, not in any acute distress. Well developed, well nourished. HEENT: Pupils are round and equally reacting to light. EOMI. No scleral icterus. No conjunctival pallor. Normocephalic, atraumatic. No pharyngeal erythema. No thyromegaly. CARDIOVASCULAR: S1 and S2 present. No murmurs, rubs, or gallops. PULMONARY: Chest is clear to auscultation, no wheezing or crackles. ABDOMEN: Soft, nontender, nondistended, normoactive bowel sounds. No palpable organomegaly. MUSCULOSKELETAL: No joint swelling or deformity. EXTREMITIES: No cyanosis, clubbing, or pedal edema. NEUROLOGICAL: Gross neurological examination did not reveal any focal deficits. SKIN: No rashes. Assessment and Plan Plan: -Congestive heart failure nonischemic cardiomyopathy with acute exacerbation patient is presently euvolemic -Acute renal failure feel azotemia secondary to kidney failure which improved at this time -Hypertension -Pleural effusion secondary to heart failure -Nicotine abuse with possible COPD without any acute exacerbation at this time -Hyperlipidemia continue with the statin Plan - Discharge Summary Discharge Rx Participant: Yes New Discharge Prescriptions: New Spironolactone [Aldactone] 25 mg PO DAILY #90 tab Aspirin 81 mg PO DAILY chew Carvedilol [Coreg*] 25 mg PO BID-W/MEALS #180 tab Furosemide [Lasix] 20 mg PO BID@0900,1600 #180 tab Atorvastatin [Lipitor] 40 mg PO HS #90 tab Nitroglycerin Sl Tabs [Nitrostat] 0.4 mg SUBLINGUAL Q5M PRN #25 tab PRN Reason: Chest Pain Lisinopril [Zestril] 10 mg PO BID #180 tab Discharge Medication List Aspirin 81 mg PO DAILY chew 12/08/19 [Rx] Atorvastatin [Lipitor] 40 mg PO HS #90 tab 12/08/19 [Rx] Carvedilol [Coreg*] 25 mg PO BID-W/MEALS #180 tab 12/08/19 [Rx] Furosemide [Lasix] 20 mg PO BID@0900,1600 #180 tab 12/08/19 [Rx] Lisinopril [Zestril] 10 mg PO BID #180 tab 12/08/19 [Rx] Nitroglycerin Sl Tabs [Nitrostat] 0.4 mg SUBLINGUAL Q5M PRN #25 tab 12/08/19 [Rx] Spironolactone [Aldactone] 25 mg PO DAILY #90 tab 12/08/19 [Rx] Follow up Appointment(s)/Referral(s): Rachel Barrett MD [STAFF PHYSICIAN] - 12/17/19 2:30 pm (Please arrive at Cardiology appointment by at least 2:15 p.m. Bring with you: Drivers license, insurance card, medication list Please wear a mask or face covering before entering building. [facility] [address] ) Linda Alatorre MD [Primary Care Provider] - 3 Days (This would be a new patient appointment if he will accept Pt, as Pt did not have a PCP on admission. ) Patient Instructions/Handouts: Heart Failure (DC), Heart Failure (GEN), How to Stop Smoking (DC), Cardiac Rehabilitation (DC) Discharge Disposition: HOME SELF-CARE
--- NOTE | 2019-12-10 02:17 | CDI ---
Documentation Clarification Form Date: 12/10/2019 From: Anton Ralph Phone: If you have a question about this query, please contact Jennifer Marquis, [employer] at [phone] between 8am and 5pm. Admit Date: 12/05/2019 Discharge Date: 12/08/2019 Patient Name: Tina Starks Visit Number: [id number] ATTENTION: The Clinical Documentation Specialists (CDI) and [facility] Coding Staff appreciate your assistance in clarifying documentation. Please respond to the clarification below the line at the bottom and electronically sign. The CDI & [facility] Coding staff will review the response and follow-up if needed. Please note: Queries are made part of the Legal Health Record. If you have any questions, please contact the author of this message via ITS. Dear Graciela Damian., Myocardial infarction is documented in the H&P report as " Patient is currently on IV heparin for non-ST elevation ND" Patient History/Risk Factors: CHF, Cardiorenal syndrome, FLOR. Troponin: mildly elevated EKG Results: EKG showed no significant findings, her troponin was slightly elevated with elevated BNP level. Treatment: IV Heparin, Cardiac Cath DS state "-Congestive heart failure nonischemic cardiomyopathy with acute exacerbation patient is presently euvolemic ". CATH Stated "Of note, the patient received 4000 units of intravenous heparin as well as intra- arterial verapamil". H&P report as " Patient is currently on IV heparin for non-ST elevation ND. In order to capture the severity of condition, please clarify NSTEMI presence? YES NO Unable to determine Other Condition, please specify NO MTDD
== END 2019-12-08 12:59 | disposition home or self-care (01) | DRG 286 ==
LOC: 2SICU 09:44
PROVIDERS: ADMIT Internal Medicine; ATTEND Internal Medicine
PROC: 4A023N7 Measurement of Cardiac Sampling and Pressure, Left Heart, Percutaneous Approach (ICD-10-PCS; principal; 2019-12-05 13:00)
PROC: B2111ZZ Fluoroscopy of Multiple Coronary Arteries using Low Osmolar Contrast (ICD-10-PCS; principal; 2019-12-05 13:00)
DX: I13.0 Hypertensive heart and chronic kidney disease with heart failure and stage 1 through stage 4 chronic kidney disease, or unspecified chronic kidney disease (principal); I50.43 Acute on chronic combined systolic (congestive) and diastolic (congestive) heart failure; N17.9 Acute kidney failure, unspecified; I42.8 Other cardiomyopathies; I25.10 Atherosclerotic heart disease of native coronary artery without angina pectoris; J44.9 Chronic obstructive pulmonary disease, unspecified; E78.5 Hyperlipidemia, unspecified; F17.210 Nicotine dependence, cigarettes, uncomplicated; I27.20 Pulmonary hypertension, unspecified; N18.9 Chronic kidney disease, unspecified; Z90.49 Acquired absence of other specified parts of digestive tract; Z90.710 Acquired absence of both cervix and uterus; Z91.012 Allergy to eggs; Z79.899 Other long term (current) drug therapy
CPT/HCPCS: 36600; 71045; 80048; 81001; 82805; 83880; 85025; 85379; 85610; 85730; 93458; 94640

== ENCOUNTER 2023-12-06 14:02 | Emergency (ER) | payer OTHER ==
--- NOTE | 2023-12-06 15:27 | ED ---
SOB HPI - General Source: patient, RN notes reviewed Mode of arrival: ambulatory Limitations: no limitations <Sarita Fletcher - Last Filed: 12/06/23 15:26> <Antonio Mena - Last Filed: 12/06/23 20:38> - General Chief Complaint: Shortness of Breath Stated Complaint: SOB Time Seen by Provider: 12/06/23 15:26 - History of Present Illness Initial Comments: Quick Note: This is a 57-year-old female who presents to the emergency department for shortness of breath. Patient was evaluated here at the end of last month for shortness of breath. She was found to have an elevated D-dimer and a CTA was advised. She had to leave AMA due to a . She was told that if symptoms persisted she should come back to the emergency department to have the CTA done. (Sarita Fletcher) I do agree with the above information. Patient does complain of shortness of breath exertional dyspnea which seems to clear up after using her albuterol. No chest pain reported. She does have a history of CA in the past. No palpitations no other complaints she believes it might be partially due to anxiety from her sister dying about 2 weeks ago. (Antonio Mena) - Related Data Previous Rx's Medication Instructions Recorded Aspirin 81 mg PO DAILY chew 12/08/19 Atorvastatin [Lipitor] 40 mg PO HS #90 tab 12/08/19 Furosemide [Lasix] 20 mg PO BID@0900,1600 #180 tab 12/08/19 Nitroglycerin Sl Tabs [Nitrostat] 0.4 mg SUBLINGUAL Q5M PRN #25 tab 12/08/19 Spironolactone [Aldactone] 25 mg PO DAILY #90 tab 12/08/19 carvediloL [Coreg*] 25 mg PO BID-W/MEALS #180 tab 12/08/19 lisinopriL [Zestril] 10 mg PO BID #180 tab 12/08/19 Allergies Allergy/AdvReac Type Severity Reaction Status Date / Time egg AdvReac Nausea & Verified 12/06/23 14:36 Vomiting & Diarrhea Review of Systems ROS Other: All systems not noted in ROS Statement are negative. <Sarita Fletcher - Last Filed: 12/06/23 15:26> ROS Other: All systems not noted in ROS Statement are negative. <RajeshAntonio - Last Filed: 12/06/23 20:38> ROS Statement: Those systems with pertinent positive or pertinent negative responses have been documented in the HPI. Past Medical History Past Medical History: Asthma, Hypertension, Myocardial Infarction (CA) History of Any Multi-Drug Resistant Organisms: None Reported Past Surgical History: Appendectomy, Cholecystectomy, Hysterectomy Additional Past Surgical History / Comment(s): breast reduction Past Anesthesia/Blood Transfusion Reactions: Postoperative Nausea & Vomiting (PONV) Past Psychological History: Anxiety, No Psychological Hx Reported Smoking Status: Current every day smoker Past Alcohol Use History: None Reported Past Drug Use History: None Reported - Past Family History Father Family Medical History: Coronary Artery Disease (CAD) Mother Family Medical History: Coronary Artery Disease (CAD), Dementia <Sarita Fletcher - Last Filed: 12/06/23 15:26> General Exam Limitations: no limitations <Sarita Fletcher - Last Filed: 12/06/23 15:26> General appearance: alert, anxious Head exam: Present: atraumatic, normocephalic, normal inspection Eye exam: Present: normal appearance, PERRL, EOMI. Absent: scleral icterus, conjunctival injection, periorbital swelling ENT exam: Present: normal exam, mucous membranes moist Neck exam: Present: normal inspection, full ROM, other (No stridor JVD or bruits). Absent: tenderness, meningismus, lymphadenopathy Respiratory exam: Present: normal lung sounds bilaterally. Absent: respiratory distress, wheezes, rales, rhonchi, stridor Cardiovascular Exam: Present: regular rate, normal rhythm, normal heart sounds. Absent: systolic murmur, diastolic murmur, rubs, gallop, clicks GI/Abdominal exam: Present: soft, normal bowel sounds. Absent: distended, tenderness, guarding, rebound, rigid Extremities exam: Present: normal inspection, full ROM, normal capillary refill. Absent: tenderness, pedal edema, joint swelling, calf tenderness Back exam: Present: normal inspection Neurological exam: Present: alert, oriented X3, CN II-XII intact Psychiatric exam: Present: normal affect, anxious Skin exam: Present: warm, dry, intact, normal color. Absent: rash <Antonio Mena - Last Filed: 12/06/23 20:38> - General Exam Comments Initial Comments: Visual Physical Exam Vital signs reviewed General: Well-appearing, nontoxic, no acute distress. Head: Normocephalic, atraumatic Eyes: PERRLA, EOMI ENT: Airway patent Chest: Nonlabored breathing Skin: No visual rash, normal skin tone Neuro: Alert and oriented 3 Musculoskeletal: No gross abnormalities (Sarita Fletcher) Is a well-developed well-nourished awake alert oriented x 4 female (RajeshAntonio) Course Vital Signs 12/06/23 12/06/23 12/06/23 14:34 17:04 17:09 Temperature 98.1 F 97.9 F Pulse Rate 101 H 108 H Respiratory 24 15 20 Rate Blood Pressure 116/84 104/90 O2 Sat by Pulse 99 98 Oximetry 12/06/23 20:11 Temperature Pulse Rate 97 Respiratory 16 Rate Blood Pressure 108/80 O2 Sat by Pulse 99 Oximetry Medical Decision Making <Sarita Fletcher - Last Filed: 12/06/23 15:26> - Lab Data Result diagrams: 12/06/23 15:37 12/06/23 15:37 <Antonio Mena - Last Filed: 12/06/23 20:38> - Medical Decision Making I performed the QuickNote portion of this chart. Signed Sarita Fletcher PA-C. (Sarita Fletcher) I did once discussed with the patient regarding the findings she has elevated troponin in addition to elevated D-dimer BNP was pending. CAT scan did show e vidence of congestive heart failure but no evidence of PE. I did discuss the findings and the need for admission the patient is refusing admission and will be discharged AGAINST MEDICAL ADVICE. I did have a long discussion with her about the risk of this including CA/cardiac risks. She does demonstrate decision-making capacity and is leaving AGAINST MEDICAL ADVICE. She was invited back at any time she did state that she will come back tomorrow morning. She was instructed to come back if there is any issues or question. Was pt. sent in by a medical professional or institution ([facility], [facility], urgent care, hospital, or fdc...) When possible be specific @ -No Did you speak to anyone other than the patient for history (EMS, parent, family, police, friend...)? What history was obtained from this source @ -No Did you review nursing and triage notes (agree or disagree)? Why? @ -I reviewed and agree with nursing and triage notes Were old charts reviewed (outside hosp., previous admission, EMS record, old EKG, old radiological studies, urgent care reports/EKG's, fdc records)? Report findings @ -Old charts were reviewed Differential Diagnosis (chest pain, altered mental status, abdominal pain women, abdominal pain men, vaginal bleeding, weakness, fever, dyspnea, syncope, headache, dizziness, GI bleed, back pain, seizure, CVA, palpatations, mental health, musculoskeletal)? @ -Dyspnea EKG interpreted by me (3pts min.). @ -As above EKG interpreted by me sinus tachycardia rate of 101 NJ interval 159 QRS duration 92 QT/QTc 376/434 right atrial enlargement left atrial enlargement nonspecific QRS-T angle this was compared with EKG dated 11/17/2023 showing si milar configuration. X-rays interpreted by me (1pt min.). @ -None done CT interpreted by me (1pt min.). @ -CT angio chest interpreted by me no evidence of PE however there is evidence of increased pulmonary vascular congestion consistent with congestive heart failure. The megaly noted U/S interpreted by me (1pt. min.). @ -None done What testing was considered but not performed or refused? (CT, X-rays, U/S, labs)? Why? @ -None What meds were considered but not given or refused? Why? @ -None Did you discuss the management of the patient with other professionals (professionals i.e. , PA, [facility], lab, RT, psych nurse, older adult social work specialist, biomass facilitator, teacher, electronic warfare officer, lead case manager)? Give summary @ -Dr. Ulrich Was smoking cessation discussed for >3mins.? @ -No Was critical care preformed (if so, how long)? @ -39 Were there social determinants of health that impacted care today? How? (Dhaval elessness, low income, unemployed, alcoholism, drug addiction, transportation, low edu. Level, literacy, decrease access to med. care, nursing home, rehab)? @ -No Was there de-escalation of care discussed even if they declined (Discuss DNR or withdrawal of care, Hospice)? DNR status @ -No What co-morbidities impacted this encounter? (DM, HTN, Smoking, COPD, CAD, Cancer, CVA, ARF, Chemo, Hep., AIDS, mental health diagnosis, sleep apnea, morbid obesity)? @ -Smoker, hypertension, history of CA Was patient admitted / discharged? Hospital course, mention meds given and route, prescriptions, significant lab abnormalities, going to OR and other pertinent info. @ -Hospital course was originally to be admitted I had discussed the case with the admitting service however the patient is refusing to be admitted and is leaving AGAINST MEDICAL ADVICE. Undiagnosed new problem with uncertain prognosis? @ -CHF, elevated troponin Drug Therapy requiring intensive monitoring for toxicity (Heparin, Nitro, Insu ricardo, Cardizem)? @ -No Were any procedures done? @ -No Diagnosis/symptom? @ -Dyspnea, CHF, bronchospasm, elevated troponin Acute, or Chronic, or Acute on Chronic? @ -Acute Uncomplicated (without systemic symptoms) or Complicated (systemic symptoms)? @ -Complicated Side effects of treatment? @ -No Exacerbation, Progression, or Severe Exacerbation? @ -Exacerbation Poses a threat to life or bodily function? How? (Chest pain, USA, CA, pneumonia, PE, COPD, DKA, ARF, appy, cholecystitis, CVA, Diverticulitis, Homicidal, Suicidal, threat to staff... and all critical care pts) @ -Potential (Antonio Mena) - Lab Data Lab Results 12/06/23 12/06/23 12/06/23 Range/Units 15:37 15:37 15:37 WBC 7.4 (3.8-10.6) k/uL RBC 4.79 (3.80-5.40) m/uL Hgb 14.4 (11.4-16.0) gm/dL Hct 46.2 H (34.0-46.0) % MCV 96.4 (80.0-100.0) fL MCH 30.0 (25.0-35.0) pg MCHC 31.1 (31.0-37.0) g/dL RDW 14.1 (11.5-15.5) % Plt Count 216 D (150-450) k/uL MPV 8.5 Neutrophils % 59 % Lymphocytes % 29 % Monocytes % 6 % Eosinophils % 4 % Basophils % 1 % Neutrophils # 4.4 (1.3-7.7) k/uL Lymphocytes # 2.1 (1.0-4.8) k/uL Monocytes # 0.4 (0-1.0) k/uL Eosinophils # 0.3 (0-0.7) k/uL Basophils # 0.1 (0-0.2) k/uL PT 10.6 (10.0-12.5) sec INR 1.0 (<1.2) APTT 23.6 (22.0-30.0) sec D-Dimer 1.45 H (<0.60) mg/L FEU Sodium 143 (137-145) mmol/L Potassium 4.3 (3.5-5.1) mmol/L Chloride 110 H (98-107) mmol/L Carbon Dioxide 26 (22-30) mmol/L Anion Gap 7 mmol/L BUN 27 H (7-17) mg/dL Creatinine 1.22 H (0.52-1.04) mg/dL Est GFR (CKD-EPI)AfAm 57 (>60 ml/min/1.73 sqM) Est GFR (CKD-EPI)NonAf 49 (>60 ml/min/1.73 sqM) Glucose 83 (74-99) mg/dL Plasma Lactic Acid Orion (0.7-2.0) mmol/L Calcium 9.3 (8.4-10.2) mg/dL Total Bilirubin 1.0 (0.2-1.3) mg/dL AST 49 H (14-36) U/L ALT 88 H (4-34) U/L Alkaline Phosphatase 107 (38-126) U/L Troponin I (0.000-0.034) ng/mL Total Protein 6.9 (6.3-8.2) g/dL Albumin 4.4 (3.5-5.0) g/dL 12/06/23 12/06/23 Range/Units 15:37 17:15 WBC (3.8-10.6) k/uL RBC (3.80-5.40) m/uL Hgb (11.4-16.0) gm/dL Hct (34.0-46.0) % MCV (80.0-100.0) fL MCH (25.0-35.0) pg MCHC (31.0-37.0) g/dL RDW (11.5-15.5) % Plt Count (150-450) k/uL MPV Neutrophils % % Lymphocytes % % Monocytes % % Eosinophils % % Basophils % % Neutrophils # (1.3-7.7) k/uL Lymphocytes # (1.0-4.8) k/uL Monocytes # (0-1.0) k/uL Eosinophils # (0-0.7) k/uL Basophils # (0-0.2) k/uL PT (10.0-12.5) sec INR (<1.2) APTT (22.0-30.0) sec D-Dimer (<0.60) mg/L FEU Sodium (137-145) mmol/L Potassium (3.5-5.1) mmol/L Chloride (98-107) mmol/L Carbon Dioxide (22-30) mmol/L Anion Gap mmol/L BUN (7-17) mg/dL Creatinine (0.52-1.04) mg/dL Est GFR (CKD-EPI)AfAm (>60 ml/min/1.73 sqM) Est GFR (CKD-EPI)NonAf (>60 ml/min/1.73 sqM) Glucose (74-99) mg/dL Plasma Lactic Acid Orion 1.3 (0.7-2.0) mmol/L Calcium (8.4-10.2) mg/dL Total Bilirubin (0.2-1.3) mg/dL AST (14-36) U/L ALT (4-34) U/L Alkaline Phosphatase (38-126) U/L Troponin I 0.054 H* (0.000-0.034) ng/mL Total Protein (6.3-8.2) g/dL Albumin (3.5-5.0) g/dL Critical Care Time Critical Care Time: Yes Total Critical Care Time: 39 <Antonio Mena - Last Filed: 12/06/23 20:38> Disposition <Sarita Fletcher - Last Filed: 12/06/23 15:26> Time of Disposition: 20:38 Decision Date: 12/06/23 Decision Time: 20:38 <Antonio Mena - Last Filed: 12/06/23 20:38> Clinical Impression: Congestive heart failure, Dyspnea, Acute bronchospasm, Elevated d-dimer, Elevated troponin Disposition: LEFT AGAINST MEDICAL ADVICE Condition: Fair Additional Instructions: Return if any problems follow-up with your doctor if you do not return to an emergency department. Referrals: None,Stated [Primary Care Provider] - 1-2 days
[2023-12-06 15:45] LABS: Basophils # (A) 0.1 k/uL (0-0.2); Basophils % (A) 1 %; Eosinophils # (A) 0.3 k/uL (0-0.7); Eosinophils % (A) 4 %; HCT 46.2 % (34.0-46.0); HGB 14.4 gm/dL (11.4-16.0); Lymphocytes # (A) 2.1 k/uL (1.0-4.8); Lymphocytes % (A) 29 %; MCHC 31.1 g/dL (31.0-37.0); MCV 96.4 fL (80.0-100.0); Mean Platelet Volume 8.5; Monocytes # (A) 0.4 k/uL (0-1.0); Monocytes % (A) 6 %; Neutrophils # (A) 4.4 k/uL (1.3-7.7); Neutrophils % (A) 59 %; RBC 4.79 m/uL (3.80-5.40); RDW 14.1 % (11.5-15.5); WBC 7.4 k/uL (3.8-10.6)
[2023-12-06 15:57] LABS: Platelet Count 216 k/uL (150-450)
[2023-12-06 16:04] LABS: ALT 88 U/L (4-34); AST 49 U/L (14-36); African American GFR (CKD) 57 (>60 ml/min/1.73 sqM); Albumin 4.4 g/dL (3.5-5.0); Alkaline Phosphatase 107 U/L (38-126); Anion Gap 7 mmol/L; Blood Urea Nitrogen 27 mg/dL (7-17); Calcium 9.3 mg/dL (8.4-10.2); Carbon Dioxide 26 mmol/L (22-30); Chloride 110 mmol/L (98-107); Glucose 83 mg/dL (74-99); Non-African American GFR(CKD) 49 (>60 ml/min/1.73 sqM); Potassium 4.3 mmol/L (3.5-5.1); Sodium 143 mmol/L (137-145); Total Protein 6.9 g/dL (6.3-8.2)
[2023-12-06 16:05] LABS: Partial Thromboplastin Time 23.6 sec (22.0-30.0); Prothrombin Time 10.6 sec (10.0-12.5)
[2023-12-06 17:18] VITALS: TEMP 97.9
--- NOTE | 2023-12-06 19:26 | CT ---
EXAMINATION TYPE: CT angio chest CT DLP: 333.2 mGycm, Automated exposure control for dose reduction was used. DATE OF EXAM: 12/06/2023 7:12 PM COMPARISON: 11/17/2023 CLINICAL INDICATION:Female, 57 years old with history of PE suspected; SOB, cat vated D-dimer. TECHNIQUE/CONTRAST: CTA scan of the thorax is performed with IV Contrast, patient injected with 80 ml mL of Isovue 370, M IP images are created and reviewed these are created on a separate workstation.. FINDINGS: Pulmonary Artery: Mixing artifact seen within the pulmonary trunk. There is no evidence for a filling defect within the pulmonary vasculature to suggest acute pulmonary embolism. The pulmonary artery i s of normal size. Lungs/Pleura: No evidence of focal consolidation, pleural effusion or pneumothorax. Centrilobular emp hysema changes are present. Intralobular septal thickening. Airway: Large airways are patent. Heart: The heart is enlarged size including the left ventricle. Vasculature: No evidence of aortic aneurysm. Reflux of contrast into the inferior vena cava. Mediastinum: No gross evidence of adenopathy. Musculoskeletal: No acute osseous abnormalities Soft Tissues/lymph nodes: Unremarkable. Lower neck: No significant findings. Upper Abdomen: Scattered colonic diverticula. Cortical hysterectomy clips. IMPRESSION: 1. No evidence of pulmonary embolism. 2. Congestive heart failure with cardiomegaly and pulmonary vascular congestion. There is reflux of c ontrast into the IVC.
[2023-12-06 20:12] VITALS: BP 108/80; PULSE 97; RESP 16
== END 2023-12-06 20:42 | disposition left against medical advice (07) ==
LOC: EC 14:02
DX: J98.01 Acute bronchospasm (principal); R79.89 Other specified abnormal findings of blood chemistry; I11.0 Hypertensive heart disease with heart failure; I50.9 Heart failure, unspecified; I25.2 Old myocardial infarction; F17.200 Nicotine dependence, unspecified, uncomplicated; Z91.012 Allergy to eggs; Z90.49 Acquired absence of other specified parts of digestive tract; Z53.29 Procedure and treatment not carried out because of patient's decision for other reasons
CPT/HCPCS: 36415; 93005; 85379; 80053; 83605; 84484; 85025; 85610; 85730; 71275; 99291; Q9967; 83880

== ENCOUNTER 2023-12-07 22:58 | Inpatient (IN) | payer OTHER ==
--- NOTE | 2023-12-07 23:43 | ED ---
SOB HPI - General Chief Complaint: Shortness of Breath Stated Complaint: SOB Time Seen by Provider: 12/07/23 23:04 Source: patient, EMS Mode of arrival: EMS - History of Present Illness Initial Comments: This patient is 57-year-old woman who presents with complaint that she is having shortness of breath. She states she gets "episodes" in which she gets very short of breath and these will last for minutes to hours. She states that she was in yesterday for 1 of these but after having received albuterol and being here for period time she felt better. She had to leave to take care of some things at home and now returns to have further treatment. The patient currently does not have a physician. She states that when she gets short of breath uses albuterol which she had from some years ago when she had physician. The patient has not noted fever or chills. She has occasional cough no sputum. She does have leg and hand swelling. She states that the breathing gets worse if she exerts herself or lies flat. MD Complaint: shortness of breath Onset/Timin -: week(s) Severity scale (1-10): 0 Consistency: intermittent Improves With: upright position Worsens With: lying flat, exertion Associated Symptoms: cough Treatments Prior to Arrival: none - Related Data Home Oxygen Therapy: No Home Medications Medication Instructions Recorded Confirmed Albuterol Sulfate [Albuterol 2 puff PO RT-Q4H PRN 12/08/23 12/08/23 Sulfate Hfa] Ipratropium-Albuterol Nebulize 3 ml INHALATION RT-TID 12/08/23 12/08/23 [Duoneb 0.5 mg-3 mg/3 ml Soln] Previous Rx's Medication Instructions Recorded Acetaminophen Tab [Tylenol] 325 mg PO Q6HR PRN tab 12/11/23 Aspirin 81 mg PO DAILY tab 12/11/23 Atorvastatin [Lipitor] 40 mg PO HS #90 tab 12/11/23 Dapagliflozin Propanediol [Farxiga] 10 mg PO DAILY #90 tab 12/11/23 Furosemide [Lasix] 20 mg PO DAILY #90 tab 12/11/23 Spironolactone [Aldactone] 25 mg PO DAILY #90 tab 12/11/23 carvediloL [Coreg*] 12.5 mg PO BID-W/MEALS #180 tab 12/11/23 lisinopriL [Zestril] 5 mg PO BID #180 tab 12/11/23 Allergies Allergy/AdvReac Type Severity Reaction Status Date / Time egg AdvReac Nausea & Verified 12/08/23 07:48 Vomiting & Diarrhea Review of Systems ROS Statement: Those systems with pertinent positive or pertinent negative responses have been documented in the HPI. ROS Other: All systems not noted in ROS Statement are negative. Constitutional: Denies: fever, chills, weakness Respiratory: Reports: dyspnea. Denies: wheezes, hemoptysis Cardiovascular: Reports: dyspnea on exertion, orthopnea, edema. Denies: chest pain, palpitations, syncope Gastrointestinal: Denies: abdominal pain, nausea, vomiting, diarrhea Genitourinary: Denies: dysuria, hematuria Musculoskeletal: Denies: back pain Skin: Denies: rash Neurological: Denies: headache, weakness, numbness Psychiatric: Reports: anxiety Past Medical History Past Medical History: Asthma, Hypertension, Myocardial Infarction ([place]) History of Any Multi-Drug Resistant Organisms: None Reported Past Surgical History: Appendectomy, Cholecystectomy, Hysterectomy Additional Past Surgical History / Comment(s): breast reduction Past Anesthesia/Blood Transfusion Reactions: Postoperative Nausea & Vomiting (PONV) Past Psychological History: Anxiety, No Psychological Hx Reported Smoking Status: Current every day smoker Past Alcohol Use History: None Reported Past Drug Use History: None Reported - Past Family History Father Family Medical History: Coronary Artery Disease (CAD) Mother Family Medical History: Coronary Artery Disease (CAD), Dementia General Exam General appearance: alert, in no apparent distress, anxious Head exam: Present: atraumatic, normocephalic Eye exam: Present: normal appearance Neck exam: Present: normal inspection Respiratory exam: Present: rales. Absent: respiratory distress, wheezes, rhonchi, stridor, chest wall tenderness, accessory muscle use Cardiovascular Exam: Present: regular rate, normal rhythm, gallop. Absent: systolic murmur, diastolic murmur, rubs GI/Abdominal exam: Present: soft. Absent: distended, tenderness, guarding, rebound, rigid, mass Extremities exam: Present: normal inspection, normal capillary refill. Absent: pedal edema, calf tenderness Back exam: Present: normal inspection. Absent: CVA tenderness (R), CVA tenderness (L) Neurological exam: Present: alert Skin exam: Present: warm, dry, intact, normal color. Absent: rash Course Vital Signs 12/07/23 12/08/23 12/08/23 23:02 00:02 01:51 Temperature 97.6 F Pulse Rate 95 93 83 Respiratory 18 18 18 Rate Blood Pressure 139/80 155/84 139/92 O2 Sat by Pulse 93 L 96 94 L Oximetry 12/08/23 12/08/23 12/08/23 02:30 03:30 04:30 Temperature Pulse Rate 89 79 98 Respiratory 15 15 15 Rate Blood Pressure 146/95 171/98 122/69 O2 Sat by Pulse 94 L 96 97 Oximetry 12/08/23 12/08/23 12/08/23 05:16 07:33 09:00 Temperature 97.5 F L Pulse Rate 85 88 77 Respiratory 16 18 18 Rate Blood Pressure 130/100 95/70 O2 Sat by Pulse 95 94 L Oximetry 12/08/23 12/08/23 12/08/23 10:00 11:00 16:20 Temperature Pulse Rate 80 80 88 Respiratory 18 18 18 Rate Blood Pressure 97/60 110/70 120/66 O2 Sat by Pulse 97 94 L Oximetry 12/08/23 12/08/23 12/08/23 17:45 19:57 21:30 Temperature Pulse Rate 68 81 71 Respiratory 18 16 16 Rate Blood Pressure 112/60 100/78 O2 Sat by Pulse 93 L 92 L 94 L Oximetry Medical Decision Making - Medical Decision Making The patient had chest x-ray that I interpreted as negative for acute infiltrate, pneumothorax, congestive heart failure Was pt. sent in by a medical professional or institution (, PA, PRODUCTION SUPERVISOR, urgent care, hospital, or penitentiary...) When possible be specific @ -[No] Did you speak to anyone other than the patient for history (EMS, parent, family, police, friend...)? What history was obtained from this source @ -[No] Did you review nursing and triage notes (agree or disagree)? Why? @ -[I reviewed and agree with nursing and triage notes] Were old charts reviewed (outside hosp., previous admission, EMS record, old EKG, old radiological studies, urgent care reports/EKG's, penitentiary records)? Report findings @ -[No old charts were reviewed] Differential Diagnosis (chest pain, altered mental status, abdominal pain women, abdominal pain men, vaginal bleeding, weakness, fever, dyspnea, syncope, headache, dizziness, GI bleed, back pain, seizure, CVA, palpatations, mental health, musculoskeletal)? @ -[Differential Dyspnea: Coronary syndrome, arrhythmia, tamponade, asthma, COPD, pulmonary embolism, pn eumonia, pneumothorax, pulmonary effusion, anaphylaxis, diabetic ketoacidosis, flailed chest, pulmonary contusion, diaphragmatic rupture, anemia, neuromuscular, this is not meant to be an all-inclusive list. EKG interpreted by me (3pts min.). @ -[I interpreted as above] X-rays interpreted by me (1pt min.). @ -[I interpreted as above CT interpreted by me (1pt min.). @ -[None done] U/S interpreted by me (1pt. min.). @ -[None done] What testing was considered but not performed or refused? (CT, X-rays, U/S, labs)? Why? @ -[None] What meds were considered but not given or refused? Why? @ -[None] Did you discuss the management of the patient with other professionals (professionals i.e. , PA, PRODUCTION SUPERVISOR, lab, RT, psych nurse, vp digital marketing social media and crm, nurse practitioner manager, teacher, energy control officer, caseworker protective services)? Give summary @ -[No] Was smoking cessation discussed for >3mins.? @ -[Yes Was critical care preformed (if so, how long)? @ -[No] Were there social determinants of health that impacted care today? How? ( Homelessness, low income, unemployed, alcoholism, drug addiction, transportation, low edu. Level, literacy, decrease access to med. care, custodial, rehab)? @ -[No] Was there de-escalation of care discussed even if they declined (Discuss DNR or withdrawal of care, Hospice)? DNR status @ -[No] What co-morbidities impacted this encounter? (DM, HTN, Smoking, COPD, CAD, Cancer, CVA, ARF, Chemo, Hep., AIDS, mental health diagnosis, sleep apnea, morbid obesity)? @ -[None] Was patient admitted / discharged? Hospital course, mention meds given and route, prescriptions, significant lab abnormalities, going to OR and other pertinent info. @ -[Patient is 57-year-old woman who has been having episodes of dyspnea. The labs do reveal elevated BNP and elevated troponin, patient will be admitted to have cardiology consultation and echocardiogram. Undiagnosed new problem with uncertain prognosis? @ -[No] Drug Therapy requiring intensive monitoring for toxicity (Heparin, Nitro, Insulin, Cardizem)? @ -[No] Were any procedures done? @ -[No] Diagnosis/symptom? @ -[Dyspnea Probable congestive heart failure Elevated troponin Acute, or Chronic, or Acute on Chronic? @ -[Acute Uncomplicated (without systemic symptoms) or Complicated (systemic symptoms)? @ -[Complicated by dyspnea Side effects of treatment? @ -[No] Exacerbation, Progression, or Severe Exacerbation? @ -[No] Poses a threat to life or bodily function? How? (Chest pain, [place], [place], pneumonia, PE, COPD, DKA, ARF, appy, cholecystitis, CVA, Diverticulitis, Homicidal, Suicidal, threat to staff... and all critical care pts) @ -[Yes, requires echocardiogram and further cardiology evaluation - Lab Data Result diagrams: 12/09/23 09:50 12/11/23 07:30 Lab Results 12/07/23 12/07/23 12/07/23 Range/Units 23:39 23:39 23:39 WBC 4.4 (3.8-10.6) k/uL RBC 4.70 (3.80-5.40) m/uL Hgb 14.3 (11.4-16.0) gm/dL Hct 45.6 (34.0-46.0) % MCV 97.0 (80.0-100.0) fL MCH 30.5 (25.0-35.0) pg MCHC 31.4 (31.0-37.0) g/dL RDW 13.9 (11.5-15.5) % Plt Count 187 (150-450) k/uL MPV 8.1 Neutrophils % 42 % Lymphocytes % 44 % Monocytes % 6 % Eosinophils % 5 % Basophils % 2 % Neutrophils # 1.8 (1.3-7.7) k/uL Lymphocytes # 1.9 (1.0-4.8) k/uL Monocytes # 0.3 (0-1.0) k/uL Eosinophils # 0.2 (0-0.7) k/uL Basophils # 0.1 (0-0.2) k/uL PT 10.8 (10.0-12.5) sec INR 1.0 (<1.2) APTT 20.1 L (22.0-30.0) sec Sodium 141 (137-145) mmol/L Potassium 4.0 (3.5-5.1) mmol/L Chloride 110 H (98-107) mmol/L Carbon Dioxide 21 L (22-30) mmol/L Anion Gap 10 mmol/L BUN 26 H (7-17) mg/dL Creatinine 1.14 H (0.52-1.04) mg/dL Est GFR (CKD-EPI)AfAm 62 (>60 ml/min/1.73 sqM) Est GFR (CKD-EPI)NonAf 54 (>60 ml/min/1.73 sqM) Glucose 109 H (74-99) mg/dL Lactic Ac Sepsis Rflx Plasma Lactic Acid Orion (0.7-2.0) mmol/L Calcium 9.4 (8.4-10.2) mg/dL Total Bilirubin 0.9 (0.2-1.3) mg/dL AST 49 H (14-36) U/L ALT 81 H (4-34) U/L Alkaline Phosphatase 100 (38-126) U/L Troponin I (0.000-0.034) ng/mL NT-Pro-B Natriuret Pep 85580 pg/mL Total Protein 7.1 (6.3-8.2) g/dL Albumin 4.4 (3.5-5.0) g/dL 12/07/23 12/07/23 12/08/23 Range/Units 23:39 23:39 00:59 WBC (3.8-10.6) k/uL RBC (3.80-5.40) m/uL Hgb (11.4-16.0) gm/dL Hct (34.0-46.0) % MCV (80.0-100.0) fL MCH (25.0-35.0) pg MCHC (31.0-37.0) g/dL RDW (11.5-15.5) % Plt Count (150-450) k/uL MPV Neutrophils % % Lymphocytes % % Monocytes % % Eosinophils % % Basophils % % Neutrophils # (1.3-7.7) k/uL Lymphocytes # (1.0-4.8) k/uL Monocytes # (0-1.0) k/uL Eosinophils # (0-0.7) k/uL Basophils # (0-0.2) k/uL PT (10.0-12.5) sec INR (<1.2) APTT (22.0-30.0) sec Sodium (137-145) mmol/L Potassium (3.5-5.1) mmol/L Chloride (98-107) mmol/L Carbon Dioxide (22-30) mmol/L Anion Gap mmol/L BUN (7-17) mg/dL Creatinine (0.52-1.04) mg/dL Est GFR (CKD-EPI)AfAm (>60 ml/min/1.73 sqM) Est GFR (CKD-EPI)NonAf (>60 ml/min/1.73 sqM) Glucose (74-99) mg/dL Lactic Ac Sepsis Rflx Y Plasma Lactic Acid Orion 2.3 H* (0.7-2.0) mmol/L Calcium (8.4-10.2) mg/dL Total Bilirubin (0.2-1.3) mg/dL AST (14-36) U/L ALT (4-34) U/L Alkaline Phosphatase (38-126) U/L Troponin I 0.049 H* (0.000-0.034) ng/mL NT-Pro-B Natriuret Pep pg/mL Total Protein (6.3-8.2) g/dL Albumin (3.5-5.0) g/dL - EKG Data -: EKG Interpreted by Me EKG shows normal: sinus rhythm, axis (Normal), intervals (Normal) Rate: normal (Rate 93 bpm) Interpretation: LVH Disposition Clinical Impression: Elevated troponin, Dyspnea, Congestive heart failure Disposition: ADMITTED IP TO THIS HOSP Condition: Fair
[2023-12-07] MEDS: ASPIRIN 81 MG PO STA (23:58)
[2023-12-08] MEDS: NITROGLYCERIN OINT 1 INCH/GM PACKET TOPICAL STA
[2023-12-08] MEDS: FUROSEMIDE 10 MG/ML 4 ML VIAL IV STA (00:01)
[2023-12-08 00:09] LABS: Basophils # (A) 0.1 k/uL (0-0.2); Basophils % (A) 2 %; Eosinophils # (A) 0.2 k/uL (0-0.7); Eosinophils % (A) 5 %; HCT 45.6 % (34.0-46.0); HGB 14.3 gm/dL (11.4-16.0); Lymphocytes # (A) 1.9 k/uL (1.0-4.8); Lymphocytes % (A) 44 %; MCH 30.5 pg (25.0-35.0); MCHC 31.4 g/dL (31.0-37.0); Mean Platelet Volume 8.1; Monocytes # (A) 0.3 k/uL (0-1.0); Monocytes % (A) 6 %; Neutrophils # (A) 1.8 k/uL (1.3-7.7); Neutrophils % (A) 42 %; Platelet Count 187 k/uL (150-450); RDW 13.9 % (11.5-15.5); WBC 4.4 k/uL (3.8-10.6)
[2023-12-08 00:23] LABS: Prothrombin Time 10.8 sec (10.0-12.5)
[2023-12-08 00:27] LABS: ALT 81 U/L (4-34); AST 49 U/L (14-36); African American GFR (CKD) 62 (>60 ml/min/1.73 sqM); Albumin 4.4 g/dL (3.5-5.0); Alkaline Phosphatase 100 U/L (38-126); Anion Gap 10 mmol/L; Blood Urea Nitrogen 26 mg/dL (7-17); Calcium 9.4 mg/dL (8.4-10.2); Carbon Dioxide 21 mmol/L (22-30); Chloride 110 mmol/L (98-107); Glucose 109 mg/dL (74-99); Non-African American GFR(CKD) 54 (>60 ml/min/1.73 sqM); Sodium 141 mmol/L (137-145); Total Bilirubin 0.9 mg/dL (0.2-1.3); Total Protein 7.1 g/dL (6.3-8.2)
[2023-12-08 00:30] LABS: Partial Thromboplastin Time 20.1 sec (22.0-30.0)
--- NOTE | 2023-12-08 00:32 | XR ---
EXAM: XR Chest, 2 Views CLINICAL HISTORY: ITS.REASON XR Reason: difficulty breathing TECHNIQUE: Frontal and lateral views of the chest. COMPARISON: 11/17/2023 FINDINGS: Lungs: No consolidation. No overt edema. Pleural space: No pleural effusion. No pneumothorax. Heart: Unremarkable. No cardiomegaly. Bones/joints: Unremarkable. No fracture or malalignment. IMPRESSION: No acute cardiopulmonary abnormality.
[2023-12-08 00:35] LABS: NT-Pro-B-Type Natriuretic Pept 20000 pg/mL
[2023-12-08] MEDS ORDERED: NITROGLYCERIN SL TABS 0.4 MG TAB SUBLINGUAL PRN (01:13)
[2023-12-08] MEDS: NITROGLYCERIN OINT 1 INCH/GM PACKET TOPICAL SCH (05:13)
[2023-12-08] MEDS: FUROSEMIDE 10 MG/ML 4 ML VIAL IV SCH ×2 (08:09→16:15)
[2023-12-08] MEDS: carvediloL 12.5 MG TAB PO SCH (08:09)
[2023-12-08] MEDS: lisinopriL 10 MG TAB PO SCH (08:10)
[2023-12-08] MEDS: SPIRONOLACTONE 25 MG TAB PO SCH (08:10)
[2023-12-08] MEDS: DAPAGLIFLOZIN PROPANEDIOL 10 MG TABLET PO SCH (10:22)
--- NOTE | 2023-12-08 11:34 | P.HPIM ---
History of Present Illness 57-year-old female came in with complaints of shortness of breath orthopnea has been going on for few days patient's shortness of breath is exertional in nature patient seems like had history of congestive heart failure in the past had history of coronary disease stopped taking her medications because of insurance issues. Patient denies any chest pain patient has mild troponin elevation of 0.043 and a BNP of 20,000 although patient chest x-ray did not show any CHF patient clinically does not have any pedal edema no elevated JVD. Patient already received 40 mg of Lasix today with good urine output and improvement in symptoms she may have already improved. Patient was also started on lisinopril 10 mg twice a day Jardiance, Aldactone. Patient used to take only very low-dose of Lasix at least 10 mg in the past. Patient lungs are clear does have history of COPD continues to smoke although patient is presently not in COPD exacerbation patient denies any sputum production or pleuritic chest pain or fever. REVIEW OF SYSTEMS: CONSTITUTIONAL: No fever, no malaise, no fatigue. HEENT: No recent visual problems or hearing problems. Denied any sore throat. CARDIOVASCULAR: No chest pain, no palpitations, no syncope. PULMONARY: no cough, no hemoptysis. GASTROINTESTINAL: No diarrhea, no nausea, no vomiting, no abdominal pain. NEUROLOGICAL: No headaches, no weakness, no numbness. HEMATOLOGICAL: Denies any bleeding or petechiae. GENITOURINARY: Denies any burning micturition, frequency, or urgency. MUSCULOSKELETAL/RHEUMATOLOGICAL: Denies any joint pain, swelling, or any muscle pain. ENDOCRINE: Denies any polyuria or polydipsia. The rest of the 14-point review of systems is negative. PHYSICAL EXAMINATION: GENERAL: The patient is alert and oriented x3, not in any acute distress. Well developed, well nourished. HEENT: Pupils are round and equally reacting to light. EOMI. No scleral icterus. No conjunctival pallor. Normocephalic, atraumatic. No pharyngeal erythema. No thyromegaly. CARDIOVASCULAR: S1 and S2 present. No murmurs, rubs, or gallops. PULMONARY: Chest is clear to auscultation, no wheezing or crackles. ABDOMEN: Soft, nontender, nondistended, normoactive bowel sounds. No palpable organomegaly. MUSCULOSKELETAL: No joint swelling or deformity. EXTREMITIES: No cyanosis, clubbing, or pedal edema. NEUROLOGICAL: Gross neurological examination did not reveal any focal deficits. SKIN: No rashes. Assessment and plan -Shortness of breath most probably secondary to congestive heart failure exacerbation after receiving Lasix improved patient appears to be euvolemic at this time I will hold off on the Lasix IV but continue with Aldactone lisinopril and Jardiance along with beta-lorenzo -Coronary artery disease -Troponin elevation probably type II non-ST elevation [place] secondary to congestive heart failure cardiology evaluated the patient patient is presently not on IV heparin further management as per cardiology -Mild acute renal failure with creatinine of 1.1 may be secondary to heart failure exacerbation, prerenal azotemia -Continue nicotine use: Counseling was provided -COPD without any acute exacerbation -Hypertension DVT prophylaxis: Subcutaneous heparin Past Medical History Past Medical History: Asthma, Hypertension, Myocardial Infarction ([place]) History of Any Multi-Drug Resistant Organisms: None Reported Past Surgical History: Appendectomy, Cholecystectomy, Hysterectomy Additional Past Surgical History / Comment(s): breast reduction Past Anesthesia/Blood Transfusion Reactions: Postoperative Nausea & Vomiting (PONV) Past Psychological History: Anxiety, No Psychological Hx Reported Smoking Status: Current every day smoker Past Alcohol Use History: None Reported Past Drug Use History: None Reported - Past Family History Father Family Medical History: Coronary Artery Disease (CAD) Mother Family Medical History: Coronary Artery Disease (CAD), Dementia Medications and Allergies Home Medications Medication Instructions Recorded Confirmed Type Albuterol Sulfate [Albuterol 2 puff PO RT-Q4H PRN 12/08/23 12/08/23 History Sulfate Hfa] Ipratropium-Albuterol Nebulize 3 ml INHALATION RT-TID 12/08/23 12/08/23 History [Duoneb 0.5 mg-3 mg/3 ml Soln] Allergies Allergy/AdvReac Type Severity Reaction Status Date / Time egg AdvReac Nausea & Verified 12/08/23 07:48 Vomiting & Diarrhea Physical Exam Vitals: Vital Signs Temp Pulse Resp BP Pulse Ox 12/08/23 07:33 88 18 130/100 94 L 12/08/23 05:16 97.5 F L 85 16 95 12/08/23 04:30 98 15 122/69 97 12/08/23 03:30 79 15 171/98 96 12/08/23 02:30 89 15 146/95 94 L 12/08/23 01:51 83 18 139/92 94 L 12/08/23 00:02 93 18 155/84 96 12/07/23 23:02 97.6 F 95 18 139/80 93 L Intake and Output 12/07/23 12/08/23 12/08/23 22:59 06:59 14:59 Other: Weight 72.575 kg Results CBC & Chem 7: 12/07/23 23:39 12/07/23 23:39 Labs: Abnormal Lab Results - Last 24 Hours (Table) 12/07/23 12/07/23 12/07/23 Range/Units 23:39 23:39 23:39 APTT 20.1 L (22.0-30.0) sec Chloride 110 H (98-107) mmol/L Carbon Dioxide 21 L (22-30) mmol/L BUN 26 H (7-17) mg/dL Creatinine 1.14 H (0.52-1.04) mg/dL Glucose 109 H (74-99) mg/dL Plasma Lactic Acid Orion 2.3 H* (0.7-2.0) mmol/L AST 49 H (14-36) U/L ALT 81 H (4-34) U/L Troponin I (0.000-0.034) ng/mL 12/07/23 12/08/23 Range/Units 23:39 03:20 APTT (22.0-30.0) sec Chloride (98-107) mmol/L Carbon Dioxide (22-30) mmol/L BUN (7-17) mg/dL Creatinine (0.52-1.04) mg/dL Glucose (74-99) mg/dL Plasma Lactic Acid Orion 2.2 H* (0.7-2.0) mmol/L AST (14-36) U/L ALT (4-34) U/L Troponin I 0.049 H* (0.000-0.034) ng/mL
--- NOTE | 2023-12-08 14:33 | P.CRDCN ---
History of Present Illness Consult date: 12/08/23 Consult reason: congestive heart failure (acute) History of present illness: This is a 57-year-old female with past medical history of severe nonischemic cardiomyopathy, calcified coronary arteries with moderate triple-vessel coronary artery disease on cardiac catheterization in 2019, chronic tobacco use and dependence, panic attacks. We have been asked to evaluate the patient for acute exacerbation of CHF. Patient states that she thought she was having panic attacks and it was shortness of breath that been going on for the past 2 weeks with minimal activity. She denies having any chest pain chest pressure or tightness. She states this has been going on for the past 2 weeks and 2 months ago her breathing was okay. She denies any lower extremity edema, no PND. She denies any cough. No blood in her stools or urine. No history of stroke or syncope, no seizure activity. Patient presented back and 2021 [facility] with shortness of breath was found to be have nonischemic cardiomyopathy at that time but did not follow-up in the office. Patient states that she ran out of her medications and she did not have a doctor to go to. She is currently smoking 4 cigarettes/day. She denies alcohol use or illicit drug use. She states that she drinks pop all the time. She also states that her sister a few weeks ago. EKG: Chest x-ray: No acute findings. CTA of the chest no PE. CHF with cardiomegaly and pulmonary vascular congestion. Laboratory studies: CBC unremarkable. INR 1. D-dimer 1.37. Sodium 141, potassium 4, CO2 21, BUN 26 creatinine 1.14. Lactic acid 2.3 followed by 1. Troponin 0.049. proBNP 20,000. Home cardiac medications: None Cardiac catheterization performed 12/06/2019 revealed calcified coronary arteries, moderate triple-vessel coronary disease. Review Of Systems: At the time of my exam: CONSTITUTIONAL: Denies fever or chills. HEENT: Denies blurred vision, vision changes, or eye pain. Denies hemoptysis CARDIOVASCULAR: Denies chest pain. Denies orthopnea. Denies PND. Denies pa lpitations RESPIRATORY: Denies shortness of breath. Reports dyspnea on exertion GASTROINTESTINAL: Denies abdominal pain. Denies nausea or vomiting. HEMATOLOGIC: Denies bleeding disorders. GENITOURINARY: Denies any blood in urine. SKIN: Denies puritis. Denies rash. Physical examination: Gen: This is a 57-year-old female in no acute distress VS: reviewed, blood pressure 141/83, heart rate 89, pulse ox 94% on room air. HEENT: Head is atraumatic, normocephalic. Pupils equal, round. Sclerae is an icteric. NECK: Supple. No JVD. LUNGS: Scattered wheezes. No intercostal retractions. HEART: Regular rate and rhythm. Systolic murmur. ABDOMEN: Soft No tenderness. EXTREMITIES: No pedal edema. No calf tenderness. NEUROLOGICAL: Patient is awake, alert and oriented x3. Assessment: Acute diastolic heart failure Dyspnea on exertion Nonischemic cardiomyopathy Tobacco use and dependence Noncompliance with medication regime and follow-up Plan: Patient has been started on aspirin 81 mg daily, atorvastatin 40 mg at bedtime, Coreg 25 mg twice daily, lisinopril 10 mg twice daily, Aldactone 25 mg daily Start patient on Farxiga 10 mg daily Continue IV Lasix 40 mg twice daily Monitor KEYUR, daily weights, electrolytes and renal function Obtain 2-D echocardiogram and Doppler study to assess cardiac structure and function Further recommendations to follow based upon clinical course Thank you kindly for this consultation. Nurse practitioner note has been reviewed, I agree with documented findings and plan of care. Patient was seen and examined. Past Medical History Past Medical History: Asthma, Hypertension, Myocardial Infarction (GA) History of Any Multi-Drug Resistant Organisms: None Reported Past Surgical History: Appendectomy, Cholecystectomy, Hysterectomy Additional Past Surgical History / Comment(s): breast reduction Past Anesthesia/Blood Transfusion Reactions: Postoperative Nausea & Vomiting (PONV) Past Psychological History: Anxiety, No Psychological Hx Reported Smoking Status: Current every day smoker Past Alcohol Use History: None Reported Past Drug Use History: None Reported - Past Family History Father Family Medical History: Coronary Artery Disease (CAD) Mother Family Medical History: Coronary Artery Disease (CAD), Dementia Medications and Allergies Home Medications Medication Instructions Recorded Confirmed Type Albuterol Sulfate [Albuterol 2 puff PO RT-Q4H PRN 12/08/23 12/08/23 History Sulfate Hfa] Ipratropium-Albuterol Nebulize 3 ml INHALATION RT-TID 12/08/23 12/08/23 History [Duoneb 0.5 mg-3 mg/3 ml Soln] Allergies Allergy/AdvReac Type Severity Reaction Status Date / Time egg AdvReac Nausea & Verified 12/08/23 07:48 Vomiting & Diarrhea Physical Exam Vitals: Vital Signs Temp Pulse Resp BP Pulse Ox 12/08/23 07:33 88 18 130/100 94 L 12/08/23 05:16 97.5 F L 85 16 95 12/08/23 04:30 98 15 122/69 97 12/08/23 03:30 79 15 171/98 96 12/08/23 02:30 89 15 146/95 94 L 12/08/23 01:51 83 18 139/92 94 L 12/08/23 00:02 93 18 155/84 96 12/07/23 23:02 97.6 F 95 18 139/80 93 L Intake and Output 12/07/23 12/08/23 12/08/23 22:59 06:59 14:59 Other: Weight 72.575 kg Results 12/07/23 23:39 12/07/23 23:39 Cardiac Enzymes 12/07/23 12/07/23 Range/Units 23:39 23:39 AST 49 H (14-36) U/L Troponin I 0.049 H* (0.000-0.034) ng/mL Coagulation 12/07/23 Range/Units 23:39 PT 10.8 (10.0-12.5) sec APTT 20.1 L (22.0-30.0) sec CBC 12/07/23 Range/Units 23:39 WBC 4.4 (3.8-10.6) k/uL RBC 4.70 (3.80-5.40) m/uL Hgb 14.3 (11.4-16.0) gm/dL Hct 45.6 (34.0-46.0) % Plt Count 187 (150-450) k/uL Comprehensive Metabolic Panel 12/07/23 Range/Units 23:39 Sodium 141 (137-145) mmol/L Potassium 4.0 (3.5-5.1) mmol/L Chloride 110 H (98-107) mmol/L Carbon Dioxide 21 L (22-30) mmol/L BUN 26 H (7-17) mg/dL Creatinine 1.14 H (0.52-1.04) mg/dL Glucose 109 H (74-99) mg/dL Calcium 9.4 (8.4-10.2) mg/dL AST 49 H (14-36) U/L ALT 81 H (4-34) U/L Alkaline Phosphatase 100 (38-126) U/L Total Protein 7.1 (6.3-8.2) g/dL Albumin 4.4 (3.5-5.0) g/dL Current Medications Generic Name Dose Route Start Last Admin Trade Name Freq PRN Reason Stop Dose Admin Aspirin 325 mg 12/09/23 09:00 Aspirin 325 Mg Tab PO DAILY [facility] Atorvastatin Calcium 40 mg 12/08/23 21:00 Atorvastatin 40 Mg Tab PO [facility] Carvedilol 25 mg 12/08/23 07:30 12/08/23 08:09 Carvedilol 12.5 Mg Tab PO 25 mg BID-W/MEALS [facility] Administration Furosemide 40 mg 12/08/23 09:00 12/08/23 08:09 Furosemide 10 Mg/Ml 4 Ml Vial IV 40 mg Q12HR [facility]LIE Administration Lisinopril 10 mg 12/08/23 09:00 12/08/23 08:10 Lisinopril 10 Mg Tab PO 10 mg BID [facility] Administration Nitroglycerin 0.5 inch 12/08/23 06:00 12/08/23 05:13 Nitroglycerin Oint 1 Inch/Gm Packet TOPICAL 12/09/23 06:01 0.5 inch Q6HR LESLIE Administration Nitroglycerin 0.4 mg 12/08/23 01:13 Nitroglycerin Sl Tabs 0.4 Mg Tab SUBLINGUAL Q5M PRN Chest Pain Sodium Chloride 10 ml 12/08/23 09:00 12/08/23 08:10 Sodium Chloride 0.9% Flush 10 Ml Syringe IV 10 ml BID [facility] Administration Spironolactone 25 mg 12/08/23 09:00 12/08/23 08:10 Spironolactone 25 Mg Tab PO 25 mg DAILY [facility] Administration Intake and Output 12/07/23 12/08/23 12/08/23 22:59 06:59 14:59 Other: Weight 72.575 kg 12/07/23 23:39 12/07/23 23:39
[2023-12-08] MEDS: HEPARIN SODIUM,PORCINE 5,000 UNIT/ML 1 ML VIAL SQ SCH (16:15)
[2023-12-08] MEDS: ATORVASTATIN 40 MG TAB PO SCH (19:59)
[2023-12-09] MEDS: ASPIRIN 81 MG PO SCH (07:43)
[2023-12-09] MEDS: ACETAMINOPHEN TAB 325 MG TAB PO PRN (07:44)
[2023-12-09] MEDS ORDERED: ASPIRIN 325 MG TAB PO SCH (09:00)
[2023-12-09 11:05] LABS: HCT 46.7 % (34.0-46.0); HGB 14.5 gm/dL (11.4-16.0); MCH 29.6 pg (25.0-35.0); MCHC 30.9 g/dL (31.0-37.0); MCV 95.7 fL (80.0-100.0); Mean Platelet Volume 8.6; Platelet Count 225 k/uL (150-450); RBC 4.88 m/uL (3.80-5.40); RDW 14.2 % (11.5-15.5); WBC 6.2 k/uL (3.8-10.6)
[2023-12-09 11:21] LABS: African American GFR (CKD) 48 (>60 ml/min/1.73 sqM); Anion Gap 8 mmol/L; Blood Urea Nitrogen 31 mg/dL (7-17); Calcium 9.4 mg/dL (8.4-10.2); Carbon Dioxide 26 mmol/L (22-30); Chloride 105 mmol/L (98-107); Glucose 92 mg/dL (74-99); Non-African American GFR(CKD) 41 (>60 ml/min/1.73 sqM); Potassium 3.9 mmol/L (3.5-5.1); Sodium 139 mmol/L (137-145)
--- NOTE | 2023-12-09 13:50 | P.PN ---
Subjective Progress Note Date: 12/09/23 Consult reason: congestive heart failure (acute) History of present illness: This is a 57-year-old female with past medical history of severe nonischemic cardiomyopathy, calcified coronary arteries with moderate triple-vessel coronary artery disease on cardiac catheterization in 2019, chronic tobacco use and dependence, panic attacks. We have been asked to evaluate the patient for acute exacerbation of CHF. Patient states that she thought she was having panic attacks and it was shortness of breath that been going on for the past 2 weeks with minimal activity. She denies having any chest pain chest pressure or tightness. She states this has been going on for the past 2 weeks and 2 months ago her breathing was okay. She denies any lower extremity edema, no PND. She denies any cough. No blood in her stools or urine. No history of stroke or syncope, no seizure activity. Patient presented back and 2021 [facility] with shortness of breath was found to be have nonischemic cardiomyopathy at that time but did not follow-up in the office. Patient states that she ran out of her medications and she did not have a doctor to go to. She is currently smoking 4 cigarettes/day. She denies alcohol use or illicit drug use. She states that she drinks pop all the time. She also states that her sister a few weeks ago. EKG: Sinus rhythm with nonspecific ST changes Chest x-ray: No acute findings. CTA of the chest no PE. CHF with cardiomegaly and pulmonary vascular congestion. Laboratory studies: CBC unremarkable. INR 1. D-dimer 1.37. Sodium 141, potassium 4, CO2 21, BUN 26 creatinine 1.14. Lactic acid 2.3 followed by 1. Troponin 0.049. proBNP 20,000. Home cardiac medications: None Cardiac catheterization performed 12/06/2019 revealed calcified coronary arteries, moderate triple-vessel coronary disease. 12/08 Patient is seen today on the cardiac stepdown unit. She states her breathing is better and she does not have the sensation of panic attacks. She denies having any chest pain, pressure or tightness. Echocardiogram is currently pending. Patient has been maintained on IV Lasix 40 mg twice daily. Blood pressure this morning 113/72 and after medications 84/47, heart rate 59, pulse ox 92% on room air. Repeat blood work reveals hemoglobin 14.5. Sodium 139, potassium 3.9, BUN 31 creatinine 1.42. Echocardiogram is pending. Physical examination: Gen: This is a 57-year-old female in no acute distress VS: reviewed LUNGS: Clear to auscultation. No intercostal retractions. HEART: Regular rate and rhythm. Systolic murmur. ABDOMEN: Soft No tenderness. EXTREMITIES: No pedal edema. No calf tenderness. NEUROLOGICAL: Patient is awake, alert and oriented x3. Assessment: Acute diastolic heart failure Dyspnea on exertion Nonischemic cardiomyopathy Tobacco use and dependence Noncompliance with medication regime and follow-up Plan: Continue patient on aspirin 81 mg daily, atorvastatin 40 mg at bedtime Decrease Coreg to 12.5 mg twice daily, decrease lisinopril to 5 mg twice daily, continue Aldactone 25 mg daily Continue patient on Farxiga 10 mg daily Transition IV Lasix to oral 20 mg daily Monitor KEYUR, daily weights, electrolytes and renal function Obtain 2-D echocardiogram and Doppler study to assess cardiac structure and function Further recommendations to follow based upon clinical course Nurse practitioner note has been reviewed, I agree with documented findings and plan of care. Patient was seen and examined. Objective - Vital Signs Vital signs: Vital Signs Temp 97.5 F L 12/09/23 11:19 Pulse 59 L 12/09/23 11:19 Resp 16 12/09/23 11:19 BP 84/47 12/09/23 11:19 Pulse Ox 92 L 12/09/23 11:19 FiO2 Intake & Output 12/08/23 12/09/23 12/09/23 18:59 06:59 18:59 Intake Total 10 Balance 10 Weight 71.8 kg Intake: IV 10 Invasive Line 1 10 Other: Voiding Method Toilet Toilet # Voids 1 - Labs CBC & Chem 7: 12/09/23 09:50 12/09/23 09:50 Labs: Abnormal Lab Results - Last 24 Hours (Table) 12/08/23 12/09/23 12/09/23 Range/Units 11:50 09:50 09:50 Hct 46.7 H (34.0-46.0) % MCHC 30.9 L (31.0-37.0) g/dL D-Dimer 1.37 H (<0.60) mg/L FEU BUN 31 H (7-17) mg/dL Creatinine 1.42 H (0.52-1.04) mg/dL
[2023-12-09 15:04] VITALS: BMI 24.7
[2023-12-09] MEDS: carvediloL 12.5 MG TAB PO SCH (17:07)
[2023-12-09] MEDS: lisinopriL 5 MG TAB PO SCH (20:45)
--- NOTE | 2023-12-09 21:08 | P.PN ---
Subjective Progress Note Date: 12/09/23 57-year-old female came in with complaints of shortness of breath orthopnea has been going on for few days patient's shortness of breath is exertional in nature patient seems like had history of congestive heart failure in the past had history of coronary disease stopped taking her medications because of insurance issues. Patient denies any chest pain patient has mild troponin elevation of 0.043 and a BNP of 20,000 although patient chest x-ray did not show any CHF patient clinically does not have any pedal edema no elevated JVD. Patient already received 40 mg of Lasix today with good urine output and improvement in symptoms she may have already improved. Patient was also started on lisinopril 10 mg twice a day Jardiance, Aldactone. Patient used to take only very low-dose of Lasix at least 10 mg in the past. Patient lungs are clear does have history of COPD continues to smoke although patient is presently not in COPD exacerbation patient denies any sputum production or pleuritic chest pain or fever. 12/19/2023 Patient is evaluated in follow up. Was taken off IV lasix and started on oral lasix 20 mg daily. carvedilol was decreased by cardiology. Echocardiogram currently pending. Patient was hoping to be discharged today. Her creatinine is up to 1.42 though. REVIEW OF SYSTEMS: CONSTITUTIONAL: No fever, no malaise, no fatigue. HEENT: No recent visual problems or hearing problems. Denied any sore throat. CARDIOVASCULAR: No chest pain, no palpitations, no syncope. PULMONARY: no cough, no hemoptysis. GASTROINTESTINAL: No diarrhea, no nausea, no vomiting, no abdominal pain. NEUROLOGICAL: No headaches, no weakness, no numbness. PHYSICAL EXAMINATION: GENERAL: The patient is alert and oriented x3, not in any acute distress. Well developed, well nourished. HEENT: Pupils are round and equally reacting to light. EOMI. No scleral icterus. No conjunctival pallor. Normocephalic, atraumatic. No pharyngeal erythema. No thyromegaly. CARDIOVASCULAR: S1 and S2 present. No murmurs, rubs, or gallops. PULMONARY: Chest is clear to auscultation, no wheezing or crackles. ABDOMEN: Soft, nontender, nondistended, normoactive bowel sounds. No palpable organomegaly. MUSCULOSKELETAL: No joint swelling or deformity. EXTREMITIES: No cyanosis, clubbing, or pedal edema. NEUROLOGICAL: Gross neurological examination did not reveal any focal deficits. SKIN: No rashes. Assessment and plan -Shortness of breath most probably secondary to congestive heart failure exacerbation after receiving Lasix improved patient appears to be euvolemic at this time I will hold off on the Lasix IV but continue with Aldactone lisinopril and Jardiance along with beta-lorenzo. Now on oral lasix. -Coronary artery disease -Troponin elevation probably type II non-ST elevation DE secondary to congestive heart failure cardiology evaluated the patient patient is presently not on IV heparin further management as per cardiology pending echocardiogram. -Mild acute renal failure with creatinine of 1.1 may be secondary to heart failure exacerbation, prerenal azotemia -Continue nicotine use: Counseling was provided -COPD without any acute exacerbation -Hypertension DVT prophylaxis: Subcutaneous heparin The impression and plan of care has been dictated by Ileana Snyder Nurse Pr actitioner as directed. Dr. Abimbola MD I have performed a history and physical examination and medical decision making of this patient, discussed the same with the dictator, and agree with the dicta tors assessment and plan as written, documented as a scribe. Based on total visit time, I have performed more than 50% of this visit. Objective - Vital Signs Vital signs: Vital Signs Temp 97.7 F 12/09/23 20:40 Pulse 72 12/09/23 20:40 Resp 17 12/09/23 20:40 BP 125/67 12/09/23 20:40 Pulse Ox 94 L 12/09/23 20:40 FiO2 Intake & Output 12/09/23 12/09/23 12/10/23 06:59 18:59 06:59 Intake Total 10 10 Balance 10 10 Weight 71.8 kg 71.8 kg Intake: IV 10 10 Invasive Line 1 10 10 Other: Voiding Method Toilet Toilet Toilet # Voids 1 1 - Labs CBC & Chem 7: 12/09/23 09:50 12/09/23 09:50 Labs: Abnormal Lab Results - Last 24 Hours (Table) 12/09/23 12/09/23 Range/Units 09:50 09:50 Hct 46.7 H (34.0-46.0) % MCHC 30.9 L (31.0-37.0) g/dL BUN 31 H (7-17) mg/dL Creatinine 1.42 H (0.52-1.04) mg/dL Assessment and Plan Time with Patient: Less than 30
--- NOTE | 2023-12-10 08:07 | CA ---
Transthoracic Echo Report Name: Tina Martinez Age: 57 Gender: F : 1965 Exam Date: 12/09/2023 14:56 Exam Location: [facility] Ht (in): 67 Wt (lb): 160 Ordering Physician: Patrick Swenson MD Attending/Referring Phys: [employer] Lot Attendant Victoria Amor RDCS Procedure CPT: Indications: Heart failure Cardiac Hx: Technical Quality: Technically difficult study Contrast 1: Definity Total Dose (mL): 2 Contrast 2: Total Dose (mL): MEASUREMENTS (Male / Female) Normal Values 2D ECHO LV Diastolic Diameter PLAX 6.2 cm 4.2 - 5.9 / 3.9 - 5.3 cm LV Systolic Diameter PLAX 6.0 cm IVS Diastolic Thickness 1.1 cm 0.6 - 1.0 / 0.6 - 0.9 cm LVPW Diastolic Thickness 1.3 cm 0.6 - 1.0 / 0.6 - 0.9 cm LV Relative Wall Thickness 0.4 RV Internal Dim ED PLAX 3.0 cm LVOT Diameter 2.5 cm LV Diastolic Volume MOD BP 224.4 cm??? 67 - 155 / 56 - 104 cm??? LV Systolic Volume MOD BP 191.2 cm??? 22 - 58 / 19 - 49 cm??? LV Ejection Fraction MOD BP 14.8 % >= 55 % LV Cardiac Index MOD BP 1286.1 cm???/min???m??? LV Diastolic Volume MOD 4C 220.2 cm??? LV Systolic Volume MOD 4C 191.3 cm??? LV Ejection Fraction MOD 4C 13.1 % LV Cardiac Index MOD 4C 1117.4 cm???/min???m??? LV Diastolic Length 4C 9.5 cm LV Systolic Length 4C 9.0 cm LV Diastolic Volume MOD 2C 223.9 cm??? LV Systolic Volume MOD 2C 189.6 cm??? LV Ejection Fraction MOD 2C 15.3 % LV Cardiac Index MOD 2C 1327.1 cm???/min???m??? LV Diastolic Length 2C 9.8 cm LV Systolic Length 2C 9.1 cm LA Volume 69.2 cm??? 18 - 58 / 22 - 52 cm??? LA Volume Index 37.2 cm???/m??? 16 - 28 cm???/m??? Ascending Aorta Diameter 3.3 cm DOPPLER AV Peak Velocity 91.7 cm/s AV Peak Gradient 3.4 mmHg AV Mean Velocity 65.7 cm/s AV Mean Gradient 1.9 mmHg AV Velocity Time Integral 15.9 cm LVOT Peak Velocity 65.0 cm/s LVOT Peak Gradient 1.7 mmHg LVOT Velocity Time Integral 9.9 cm LVOT Stroke Volume 47.7 cm??? LVOT Stroke Volume Index 26.0 ml/m??? LVOT Cardiac Index 1846.2 cm???/min???m??? AV Area Cont Eq vti 3.0 cm??? AV Area Cont Eq pk 3.4 cm??? PV Peak Velocity 56.8 cm/s PV Peak Gradient 1.3 mmHg FINDINGS Left Ventricle Left ventricular ejection fraction is estimated at 10-15 %. Mildly increased septal wall thickness. Moderately increased posterior wall thickness. Severely increased left ventricular diastolic diameter. Severely increased left ventricular diastolic volume. Severely increased left ventricular systolic volume. Severely decreased left ventricular ejection fraction. Right Ventricle Normal right ventricular size with severely reduced function. Unable to estimate the right ventricular systolic pressure. Right Atrium Right atrial dilatation. Left Atrium Moderately increased left atrial volume. Mitral Valve Structurally normal mitral valve. No evidence for mitral valve prolapse. No mitral stenosis. Trace mitral regurgitation. Aortic Valve Trileaflet aortic valve. No aortic valve stenosis or regurgitation. Tricuspid Valve Structurally normal tricuspid valve. No tricuspid stenosis. Trace tricuspid regurgitation. Pulmonic Valve Structurally normal pulmonic valve. No pulmonic stenosis. Trace pulmonic regurgitation. Pericardium No pericardial effusion. Aorta Normal size aortic root and proximal ascending aorta. CONCLUSIONS Severe LV systolic dysfunction with an ejection fraction of 10 to 15% with global hypokinesia Previewed by: Dr. River Samaniego MD (Electronically Signed) Final Date: 10 December 2023 08:06
[2023-12-10] MEDS: FUROSEMIDE 20 MG TAB PO SCH (09:22)
[2023-12-10 12:05] LABS: African American GFR (CKD) 51 (>60 ml/min/1.73 sqM); Anion Gap 8 mmol/L; Blood Urea Nitrogen 35 mg/dL (7-17); Calcium 9.4 mg/dL (8.4-10.2); Carbon Dioxide 26 mmol/L (22-30); Chloride 106 mmol/L (98-107); Glucose 86 mg/dL (74-99); Non-African American GFR(CKD) 44 (>60 ml/min/1.73 sqM); Sodium 140 mmol/L (137-145)
[2023-12-10 12:18] LABS: Potassium 4.5 mmol/L (3.5-5.1)
--- NOTE | 2023-12-10 14:01 | P.PN ---
Subjective Progress Note Date: 12/10/23 Consult reason: congestive heart failure (acute) History of present illness: This is a 57-year-old female with past medical history of severe nonischemic cardiomyopathy, calcified coronary arteries with moderate triple-vessel coronary artery disease on cardiac catheterization in 2019, chronic tobacco use and dependence, panic attacks. We have been asked to evaluate the patient for acute exacerbation of CHF. Patient states that she thought she was having panic attacks and it was shortness of breath that been going on for the past 2 weeks with minimal activity. She denies having any chest pain chest pressure or tightness. She states this has been going on for the past 2 weeks and 2 months ago her breathing was okay. She denies any lower extremity edema, no PND. She denies any cough. No blood in her stools or urine. No history of stroke or syncope, no seizure activity. Patient presented back and 2021 [facility] with shortness of breath was found to be have nonischemic cardiomyopathy at that time but did not follow-up in the office. Patient states that she ran out of her medications and she did not have a doctor to go to. She is currently smoking 4 cigarettes/day. She denies alcohol use or illicit drug use. She states that she drinks pop all the time. She also states that her sister a few weeks ago. EKG: Sinus rhythm with nonspecific ST changes Chest x-ray: No acute findings. CTA of the chest no PE. CHF with cardiomegaly and pulmonary vascular congestion. Laboratory studies: CBC unremarkable. INR 1. D-dimer 1.37. Sodium 141, potassium 4, CO2 21, BUN 26 creatinine 1.14. Lactic acid 2.3 followed by 1. Troponin 0.049. proBNP 20,000. Home cardiac medications: None Cardiac catheterization performed 12/06/2019 revealed calcified coronary arteries, moderate triple-vessel coronary disease. 12/08 Patient is seen today on the cardiac stepdown unit. She states her breathing is better and she does not have the sensation of panic attacks. She denies having any chest pain, pressure or tightness. Echocardiogram is currently pending. Patient has been maintained on IV Lasix 40 mg twice daily. Blood pressure this morning 113/72 and after medications 84/47, heart rate 59, pulse ox 92% on room air. Repeat blood work reveals hemoglobin 14.5. Sodium 139, potassium 3.9, BUN 31 creatinine 1.42. Echocardiogram is pending. 12/09 Echocardiogram revealed significant drop in EF to 10 to 15% with global hypokinesia. Results of the echocardiogram reviewed with the patient. Explained to the patient that she needs strict follow-up with cardiology, follow-up medication regime and if she has no improvement in EF, patient most likely will require AICD. Patient also had a run of 13 beats of V. tach nonsustained. She denies having any chest pain. Shortness of breath is stable. No panic attack feelings. Physical examination: Gen: This is a 57-year-old female in no acute distress VS: reviewed LUNGS: Clear to auscultation. No intercostal retractions. HEART: Regular rate and rhythm. Systolic murmur. ABDOMEN: Soft No tenderness. EXTREMITIES: No pedal edema. No calf tenderness. NEUROLOGICAL: Patient is awake, alert and oriented x3. Assessment: Acute diastolic heart failure Dyspnea on exertion Nonischemic cardiomyopathy Tobacco use and dependence Noncompliance with medication regime and follow-up Nonsustained ventricular tachycardia Plan: Continue patient on aspirin 81 mg daily, atorvastatin 40 mg at bedtime, Coreg 12.5 mg twice daily, lisinopril to 5 mg twice daily, Aldactone 25 mg daily Continue patient on Farxiga 10 mg daily Continue Lasix oral 20 mg daily Monitor KEYUR, daily weights, electrolytes and renal function Repeat BNP in the morning Further recommendations to follow based upon clinical course Nurse practitioner note has been reviewed, I agree with documented findings and plan of care. Patient was seen and examined. Objective - Vital Signs Vital signs: Vital Signs Temp 98 F 12/10/23 09:24 Pulse 64 12/10/23 11:46 Resp 17 12/10/23 11:46 BP 123/79 12/10/23 11:46 Pulse Ox 93 L 12/10/23 11:46 FiO2 Intake & Output 12/09/23 12/10/23 12/10/23 18:59 06:59 18:59 Intake Total 20 118 Balance 20 118 Weight 71.8 kg 69.9 kg Intake: IV 20 Invasive Line 1 20 Oral 118 Other: Voiding Method Toilet Toilet Toilet # Voids 1 1 - Labs CBC & Chem 7: 12/09/23 09:50 12/10/23 11:29
--- NOTE | 2023-12-10 15:13 | P.PN ---
Subjective Progress Note Date: 12/10/23 57-year-old female came in with complaints of shortness of breath orthopnea has been going on for few days patient's shortness of breath is exertional in nature patient seems like had history of congestive heart failure in the past had history of coronary disease stopped taking her medications because of insurance issues. Patient denies any chest pain patient has mild troponin elevation of 0.043 and a BNP of 20,000 although patient chest x-ray did not show any CHF patient clinically does not have any pedal edema no elevated JVD. Patient already received 40 mg of Lasix today with good urine output and improvement in symptoms she may have already improved. Patient was also started on lisinopril 10 mg twice a day Jardiance, Aldactone. Patient used to take only very low-dose of Lasix at least 10 mg in the past. Patient lungs are clear does have history of COPD continues to smoke although patient is presently not in COPD exacerbation patient denies any sputum production or pleuritic chest pain or fever. 12/09/2023 Patient is evaluated in follow up. Was taken off IV lasix and started on oral lasix 20 mg daily. carvedilol was decreased by cardiology. Echocardiogram currently pending. Patient was hoping to be discharged today. Her creatinine is up to 1.42 though. 12/10/2023 Patient is evaluated today in follow-up has a monitor overnight with no reports of any chest pain or shortness of breath. Patient denies any alcohol use she does continue to smoke up to 4 cigarettes/day. Patient does report a strong family history of coronary artery disease states that her father at age 47 from a heart attack. Echocardiogram comes back showing a significantly decreased LV function with an EF of 10 to 15%. This is felt to be nonischemic in nature and per cardiology this is not new patient has just been noncompliant with follow-up after a hospitalization back in 2021 at [facility]. Medications have been adjusted to optimize medical therapy and patient will be monitored overnight and will be able to likely discharge home tomorrow and will potentially need an AICD on an outpatient basis. REVIEW OF SYSTEMS: CONSTITUTIONAL: No fever, no malaise, no fatigue. HEENT: No recent visual problems or hearing problems. Denied any sore throat. CARDIOVASCULAR: No chest pain, no palpitations, no syncope. PULMONARY: no cough, no hemoptysis. GASTROINTESTINAL: No diarrhea, no nausea, no vomiting, no abdominal pain. NEUROLOGICAL: No headaches, no weakness, no numbness. PHYSICAL EXAMINATION: GENERAL: The patient is alert and oriented x3, not in any acute distress. Well developed, well nourished. HEENT: Pupils are round and equally reacting to light. EOMI. No scleral icterus. No conjunctival pallor. Normocephalic, atraumatic. No pharyngeal erythema. No thyromegaly. CARDIOVASCULAR: S1 and S2 present. No murmurs, rubs, or gallops. PULMONARY: Chest is clear to auscultation, no wheezing or crackles. ABDOMEN: Soft, nontender, nondistended, normoactive bowel sounds. No palpable organomegaly. MUSCULOSKELETAL: No joint swelling or deformity. EXTREMITIES: No cyanosis, clubbing, or pedal edema. NEUROLOGICAL: Gross neurological examination did not reveal any focal deficits. SKIN: No rashes. Assessment and plan -Shortness of breath most probably secondary to congestive heart failure exacerbation after receiving Lasix improved patient appears to be euvolemic at this time -Nonischemic cardiomyopathy with an ejection fraction of 10 to 15%. -Coronary artery disease -Troponin elevation probably type II non-ST elevation PA secondary to congestive heart failure -Mild acute renal failure with creatinine of 1.1 may be secondary to heart failure exacerbation, prerenal azotemia -Continue nicotine use: Counseling was provided -COPD without any acute exacerbation -Hypertension DVT prophylaxis: Subcutaneous heparin GI prophylaxis Pepcid Plan Patient will be continued on optimize cardiac therapy with aspirin 81 mg daily, atorvastatin 40 mg at bedtime, carvedilol 12.5 mg twice a day, has been started on Farxiga and oral Lasix daily. Patient has been resumed on lisinopril and Aldactone. Patient was monitored overnight on the cardiac telemetry and will likely be discharged home tomorrow. Will be evaluated for an AICD on an outpatient basis. The impression and plan of care has been dictated by Ileana Snyder Nurse Practitioner as directed. Dr. Abimbola MD I have performed a history and physical examination and medical decision making of this patient, discussed the same with the dictator, and agree with the dictators assessment and plan as written, documented as a scribe. Based on total visit time, I have performed more than 50% of this visit. Objective - Vital Signs Vital signs: Vital Signs Temp 98 F 12/10/23 09:24 Pulse 64 12/10/23 11:46 Resp 17 12/10/23 11:46 BP 123/79 12/10/23 11:46 Pulse Ox 93 L 12/10/23 11:46 FiO2 Intake & Output 12/09/23 12/10/23 12/10/23 18:59 06:59 18:59 Intake Total 20 236 Balance 20 236 Weight 71.8 kg 69.9 kg Intake: IV 20 Invasive Line 1 20 Oral 236 Other: Voiding Method Toilet Toilet Toilet # Voids 1 1 - Labs CBC & Chem 7: 12/09/23 09:50 12/10/23 11:29 Labs: Abnormal Lab Results - Last 24 Hours (Table) 12/10/23 Range/Units 11:29 BUN 35 H (7-17) mg/dL Creatinine 1.34 H (0.52-1.04) mg/dL Assessment and Plan Time with Patient: Less than 30
[2023-12-10 16:35] VITALS: RESP 16
[2023-12-11] MEDS: FAMOTIDINE 20 MG TAB PO SCH (09:07)
[2023-12-11 09:12] VITALS: TEMP 97.5
[2023-12-11 09:48] LABS: African American GFR (CKD) 47 (>60 ml/min/1.73 sqM); Anion Gap 7 mmol/L; Blood Urea Nitrogen 36 mg/dL (7-17); Calcium 9.3 mg/dL (8.4-10.2); Carbon Dioxide 26 mmol/L (22-30); Chloride 107 mmol/L (98-107); Glucose 104 mg/dL (74-99); Non-African American GFR(CKD) 41 (>60 ml/min/1.73 sqM); Potassium 4.1 mmol/L (3.5-5.1); Sodium 140 mmol/L (137-145)
--- NOTE | 2023-12-11 11:08 | P.PN ---
Subjective Progress Note Date: 12/11/23 Consult reason: congestive heart failure (acute) History of present illness: This is a 57-year-old female with past medical history of severe nonischemic c ardiomyopathy, calcified coronary arteries with moderate triple-vessel coronary artery disease on cardiac catheterization in 2019, chronic tobacco use and dependence, panic attacks. We have been asked to evaluate the patient for acute exacerbation of CHF. Patient states that she thought she was having panic attacks and it was shortness of breath that been going on for the past 2 weeks with minimal activity. She denies having any chest pain chest pressure or tightness. She states this has been going on for the past 2 weeks and 2 months ago her breathing was okay. She denies any lower extremity edema, no PND. She denies any cough. No blood in her stools or urine. No history of stroke or syncope, no seizure activity. Patient presented back and 2021 [facility] with shortness of breath was found to be have nonischemic cardiomyopathy at that time but did not follow-up in the office. Patient states that she ran out of her medications and she did not have a doctor to go to. She is currently smoking 4 cigarettes/day. She denies alcohol use or illicit drug use. She states that she drinks pop all the time. She also states that her sister a few weeks ago. EKG: Sinus rhythm with nonspecific ST changes Chest x-ray: No acute findings. CTA of the chest no PE. CHF with cardiomegaly and pulmonary vascular congestion. Laboratory studies: CBC unremarkable. INR 1. D-dimer 1.37. Sodium 141, potassium 4, CO2 21, BUN 26 creatinine 1.14. Lactic acid 2.3 followed by 1. Troponin 0.049. proBNP 20,000. Home cardiac medications: None Cardiac catheterization performed 12/06/2019 revealed calcified coronary arteries, moderate triple-vessel coronary disease. 12/08 Patient is seen today on the cardiac stepdown unit. She states her breathing is better and she does not have the sensation of panic attacks. She denies having any chest pain, pressure or tightness. Echocardiogram is currently pending. Patient has been maintained on IV Lasix 40 mg twice daily. Blood pressure this morning 113/72 and after medications 84/47, heart rate 59, pulse ox 92% on room air. Repeat blood work reveals hemoglobin 14.5. Sodium 139, potassium 3.9, BUN 31 creatinine 1.42. Echocardiogram is pending. 12/09 Echocardiogram revealed significant drop in EF to 10 to 15% with global hypokinesia. Results of the echocardiogram reviewed with the patient. Explained to the patient that she needs strict follow-up with cardiology, follow-up medication regime and if she has no improvement in EF, patient most likely will require AICD. Patient also had a run of 13 beats of V. tach nonsustained. She denies having any chest pain. Shortness of breath is stable. No panic attack feelings. 12/10 Patient seen today in follow-up on the cardiac stepdown unit. She denies chest pain, shortness of breath. She states she has been ambulating without symptoms. She has been switched to all oral medications including Lasix. Repeat blood work reveals BUN of 36 and creatinine 1.44. BNP 2480. Blood pressure 109/72, heart rate 74. Pulse ox 97% on room air. Smoking cessation was again discussed with the patient. She understands the importance of quitting. Physical examination: Gen: This is a 57-year-old female in no acute distress VS: reviewed LUNGS: Clear to auscultation. No intercostal retractions. HEART: Regular rate and rhythm. Systolic murmur. ABDOMEN: Soft No tenderness. EXTREMITIES: No pedal edema. No calf tenderness. NEUROLOGICAL: Patient is awake, alert and oriented x3. Assessment: Acute diastolic heart failure Dyspnea on exertion Nonischemic cardiomyopathy Tobacco use and dependence Noncompliance with medication regime and follow-up Nonsustained ventricular tachycardia Plan: Continue patient on aspirin 81 mg daily, atorvastatin 40 mg at bedtime, Coreg 12.5 mg twice daily, lisinopril to 5 mg twice daily, Aldactone 25 mg daily Continue patient on Farxiga 10 mg daily Continue Lasix oral 20 mg daily Patient is cleared for discharge from cardiology and may follow-up in the office in [address] Barrett. Prescriptions will be sent to her pharmacy for new cardiac medications. Smoking cessation discussed with the patient. Patient will be provided with the [place] quit line information. Nurse practitioner note has been reviewed, I agree with documented findings and plan of care. Patient was seen and examined. Objective - Vital Signs Vital signs: Vital Signs Temp 97.5 F L 12/11/23 09:10 Pulse 74 12/11/23 09:10 Resp 16 12/11/23 04:00 BP 109/72 12/11/23 09:10 Pulse Ox 97 12/11/23 09:10 FiO2 Intake & Output 12/10/23 12/11/23 12/11/23 18:59 06:59 18:59 Intake Total 592 Output Total 3 Balance 589 Intake: Oral 592 Output: Urine 3 Other: Voiding Method Toilet Toilet # Voids 1 # Bowel Movements 1 - Labs CBC & Chem 7: 12/09/23 09:50 12/11/23 07:30 Labs: Abnormal Lab Results - Last 24 Hours (Table) 12/10/23 Range/Units 11:29 BUN 35 H (7-17) mg/dL Creatinine 1.34 H (0.52-1.04) mg/dL
[2023-12-11 11:50] VITALS: BP 132/75; PULSE 75
--- NOTE | 2023-12-15 06:52 | P.DS ---
Providers Date of admission: 12/08/23 01:13 Expected date of discharge: 12/11/23 Attending physician: Scott Ulrich Consults: 12/08/23 01:10 Consult Physician Routine Consulting Provider: River Samainego Consult Reason/Comments: Acute exacerbation of congestive heart failure Do you want consulting provider notified?: Yes Primary care physician: Stated None Hospital Course: Final diagnosis -Shortness of breath most probably secondary to congestive heart failure exacerbation after receiving Lasix improved patient appears to be euvolemic at this time -Nonischemic cardiomyopathy with an ejection fraction of 10 to 15%. -Coronary artery disease -Troponin elevation probably type II non-ST elevation CT secondary to congestive heart failure -Mild acute renal failure with creatinine of 1.1 may be secondary to heart failure exacerbation, prerenal azotemia -Continue nicotine use: Counseling was provided -COPD without any acute exacerbation -Hypertension DVT prophylaxis: Subcutaneous heparin GI prophylaxis Pepcid Discharge disposition Patient is being discharged in a stable condition with guarded prognosis to home. Patient will follow-up with Dr. Marko Madden with resources provided for other PCPs in the area in the outpatient setting upon discharge. Patient does not currently have a primary care provider. Patient is to continue with current medications and close outpatient follow-up with cardiology as scheduled. Total time taken is greater than 35 minutes. Hospital course This is a 57-year-old female who was recently admitted with shortness of breath with CHF exacerbation. Patient noted to have an EF of 10 to 15% being followed by cardiology. Patient to continue with maximizing medical management and aggressive lifestyle risk factor modifications and outpatient follow-up with cardiology. Patient is noncompliant with follow-up and medications and will follow-up with cardiology outpatient to discuss possible AICD in the future. Patient has been cleared by cardiology and reports to feeling well and extremely anxious to go home. Please refer to cardiology notes for further HPI. Currently no reports of chest pain, shortness of breath, or palpitations. Patient is afebrile. No reports of nausea or vomiting and patient is tolerating diet. Patient will be discharged home today. Extremely high risk for readmissions given patient's noncompliance to follow-up and medications. Patient is high risk with significant comorbidities as well. Physical exam: Gen: This is a 57-year-old female who is awake, alert and oriented x 3, well-developed, elderly appearing, thin built HEENT: Head is atraumatic, normocephalic. Pupils equal, round. Sclerae is anicteric. NECK: Supple. No JVD. No lymphadenopathy. No thyromegaly. LUNGS: Diminished breath sounds bilaterally otherwise clear to auscultation. No wheezes or rhonchi. No intercostal retractions. HEART: S1, S2 are muffled ABDOMEN: Soft. Bowel sounds are present. No masses. No tenderness. EXTREMITIES: No pedal edema. No calf tenderness. NEUROLOGICAL: Patient is awake, alert and oriented x3. Cranial nerves 2 through 12 are grossly intact. Please refer to medication reconciliation sheet for a list of medications. The impression and plan of care has been dictated by Nuria Kidd, Nurse Practitioner as directed. Dr. Serg MD I have performed a history and examination and MDM of this patient, discussed the same with the dictator, and agree with the dictator's assessment and plan as written ,documented as a scribe. Based on total visit time, I have performed more than 50% of the visit. Patient Condition at Discharge: Fair Plan - Discharge Summary Discharge Rx Participant: Yes New Discharge Prescriptions: New Atorvastatin [Lipitor] 40 mg PO HS #90 tab Spironolactone [Aldactone] 25 mg PO DAILY #90 tab Aspirin 81 mg PO DAILY tab carvediloL [Coreg*] 12.5 mg PO BID-W/MEALS #180 tab Dapagliflozin Propanediol [Farxiga] 10 mg PO DAILY #90 tab Furosemide [Lasix] 20 mg PO DAILY #90 tab lisinopriL [Zestril] 5 mg PO BID #180 tab Acetaminophen Tab [Tylenol] 325 mg PO Q6HR PRN tab PRN Reason: Fever And/ Or Pain Continue Ipratropium-Albuterol Nebulize [Duoneb 0.5 mg-3 mg/3 ml Soln] 3 ml INHALATION RT-TID Albuterol Sulfate [Albuterol Sulfate Hfa] 2 puff PO RT-Q4H PRN PRN Reason: Shortness Of Breath Discharge Medication List Albuterol Sulfate [Albuterol Sulfate Hfa] 2 puff PO RT-Q4H PRN 12/08/23 [History] Ipratropium-Albuterol Nebulize [Duoneb 0.5 mg-3 mg/3 ml Soln] 3 ml INHALATION RT-TID 12/08/23 [History] Acetaminophen Tab [Tylenol] 325 mg PO Q6HR PRN tab 12/11/23 [Rx] Aspirin 81 mg PO DAILY tab 12/11/23 [Rx] Atorvastatin [Lipitor] 40 mg PO HS #90 tab 12/11/23 [Rx] Dapagliflozin Propanediol [Farxiga] 10 mg PO DAILY #90 tab 12/11/23 [Rx] Furosemide [Lasix] 20 mg PO DAILY #90 tab 12/11/23 [Rx] Spironolactone [Aldactone] 25 mg PO DAILY #90 tab 12/11/23 [Rx] carvediloL [Coreg*] 12.5 mg PO BID-W/MEALS #180 tab 12/11/23 [Rx] lisinopriL [Zestril] 5 mg PO BID #180 tab 12/11/23 [Rx] Follow up Appointment(s)/Referral(s): Rachel Barrett MD [STAFF PHYSICIAN] - 1 Week (office will call you with appt. if you do not hear frm them within 48 hours please call. ) Claire Carpenter MD [STAFF PHYSICIAN] - 1 Week (please call to schedule) Patient Instructions/Handouts: Heart Failure (DC) Discharge Disposition: HOME SELF-CARE
== END 2023-12-11 13:17 | disposition home or self-care (01) | DRG 280 ==
LOC: EC 22:58 → 3SCARD 12-08 01:13
PROVIDERS: ADMIT Internal Medicine; ATTEND Internal Medicine
DX: I11.0 Hypertensive heart disease with heart failure (principal); I50.31 Acute diastolic (congestive) heart failure; I21.A1 Myocardial infarction type 2; I47.20 Ventricular tachycardia, unspecified; N17.9 Acute kidney failure, unspecified; I42.8 Other cardiomyopathies; F17.210 Nicotine dependence, cigarettes, uncomplicated; Z71.6 Tobacco abuse counseling; F41.0 Panic disorder [episodic paroxysmal anxiety]; I25.10 Atherosclerotic heart disease of native coronary artery without angina pectoris; I25.2 Old myocardial infarction; Z79.82 Long term (current) use of aspirin; Z79.899 Other long term (current) drug therapy; Z91.128 Patient's intentional underdosing of medication regimen for other reason; Z91.148 Patient's other noncompliance with medication regimen for other reason
CPT/HCPCS: 36415; 71046; 80048; 80053; 83605; 83880; 84484; 85025; 85027; 85379; 85610; 85730; 93005; 93306; 94760; 96372; 96374; 96376; 99285

== ENCOUNTER 2024-04-20 05:46 | Day surgery (SDC) | payer OTHER ==
[2024-04-16 14:38] VITALS: BMI 24.2
[~2024-04-20 05:46] MED LIST: ALPRAZolam 0.25 MG TAB PO PRN; ALPRAZolam 0.5 MG TAB PO PRN; ATORVASTATIN 80 MG TAB PO STA; NITROGLYCERIN SL TABS 0.4 MG TAB SUBLINGUAL PRN
[2024-04-20] MEDS: ASPIRIN 325 MG TAB PO STA (06:13)
[2024-04-20] MEDS: SODIUM CHLORIDE 0.9% 1,000 ML in EMPTY BAG 1 BAG IV SCH (06:16)
[2024-04-20 06:19] VITALS: RESP 18; TEMP 97.8
[2024-04-20] MEDS: IV FLUID CONTINUATION 1,000 ML IV ONE (06:20)
[2024-04-20 06:48] LABS: Basophils # (A) 0.1 k/uL (0-0.2); Basophils % (A) 1 %; Eosinophils # (A) 0.3 k/uL (0-0.7); Eosinophils % (A) 4 %; HCT 47.8 % (34.0-46.0); HGB 15.6 gm/dL (11.4-16.0); Lymphocytes % (A) 45 %; MCH 30.7 pg (25.0-35.0); MCHC 32.7 g/dL (31.0-37.0); Monocytes # (A) 0.3 k/uL (0-1.0); Monocytes % (A) 5 %; Neutrophils # (A) 2.9 k/uL (1.3-7.7); Neutrophils % (A) 44 %; Platelet Count 205 k/uL (150-450); RBC 5.08 m/uL (3.80-5.40); RDW 13.6 % (11.5-15.5); WBC 6.7 k/uL (3.8-10.6)
[2024-04-20 06:56] LABS: African American GFR (CKD) 55 (>60 ml/min/1.73 sqM); Anion Gap 4 mmol/L; Blood Urea Nitrogen 31 mg/dL (7-17); Calcium 9.6 mg/dL (8.4-10.2); Carbon Dioxide 30 mmol/L (22-30); Chloride 106 mmol/L (98-107); Glucose 85 mg/dL (74-99); Non-African American GFR(CKD) 48 (>60 ml/min/1.73 sqM); Sodium 140 mmol/L (137-145)
[2024-04-20] MEDS: HEPARIN SODIUM,PORCINE 10,000 UNIT in SODIUM CHLORIDE 0.9% 1,000 ML IRRIGATION PRN (07:40)
[2024-04-20] MEDS: HEPARIN SODIUM,PORCINE (1 ML) 2,500 UNIT in SODIUM CHLORIDE 0.9% 250 ML IRRIGATION PRN (07:40)
[2024-04-20] MEDS: fentaNYL (PF) 50 MCG/1 ML VIAL IVP ONE (07:40)
[2024-04-20] MEDS: MIDAZOLAM 2 MG/2 ML VIAL IVP ONE (07:42)
[2024-04-20] MEDS: LIDOCAINE 1% INJ 10MG/ML (20 ML MDV) SQ ONE (07:42)
[2024-04-20] MEDS: VERAPAMIL SYRINGE (5 MG/10 ML) INTRAARTER ONE (07:44)
[2024-04-20] MEDS: HEPARIN SODIUM 1,000 UN/ML (10ML VL) IVP ONE (07:46)
[2024-04-20] MEDS: IOPAMIDOL-370 100ML BTL INJ ONE (07:54)
[2024-04-20] MEDS ORDERED: RX INFO: IV CONTRAST WAS GIVEN 1 EACH MISC MISCELLANE PRN (08:06)
--- NOTE | 2024-04-20 08:11 | P.CARDCATH ---
Date of Procedure: 04/20/24 Description of Procedure: Cardiac Catheterization: The patient is a 58-year-old female with a known history of severe cardiomyopathy, history of CAD, chronic tobacco use, hypertension and hyperlipidemia who has been complaining of progressive dyspnea and was found to have an abnormal MPI. Recommendations were made regarding cardiac catheterization, the risks and the complications were discussed with the patient who is in full understanding and agreement. Procedure Description: Patient was brought to geochemical laboratory technician in fasting semi-sedated state after receiving Fentanyl and Benadryl achieiving moderate conscious sedated state. Using Xylocaine Anesthesia and modified Seldinger technique, a 6-Mauritanian sheath was introduced in the right radial artery . Subsequently, selective coronary angiography was performed using a 5-Mauritanian 3.5 bend Berlin catheter. Multiple views of the coronary artery including hemiaxial views were obtained. The right Berlin catheter was used to cross the aortic valve and LVEDP was calculated. Following that, catheter and sheath were removed. Hemostasis was obtained with deployment of vascular band . There was no immediate complication. Patient was returned to room in stable condition. Of note, the patient received a total of 4000 units of intravenous heparin as well as intra-arterial verapamil. Findings: Fluoroscopy: Severe calcifications of all the coronary arteries was noted Left main: This is a short size vessel, bifurcating into LAD and left circumflex, left main has no obstructive disease. LAD: This is a large size vessel, reaching to the apex with a wraparound apex segment, giving rise to a proximal 2 diagonal branch of moderate caliber. The LAD in the proximal and mid segment has diffuse intimal disease with a area of stenosis up to 50% with no evidence of severe stenosis Left circumflex: This is a large nondominant vessel, giving rise to 2 obtuse ma rginal branch. The left circumflex has mild intimal disease of 30 to 40% with no high-grade stenosis RCA: This is a large dominant vessel, bifurcating to PDA and PLV. The mid right coronary artery has intimal disease of 30 to 40% with no high-grade stenosis Left Ventriculogram: Not performed Hemodynamics: There was no gradient across the aortic valve, LVEDP was 20-25 mmHg Conclusion: 1. Heavily calcified coronary arteries 2. Mild to moderate triple-vessel disease with no progression compared to 2020 3. Right dominance 4. Elevated LVEDP Recommendations: I would recommend to continue with medical therapy with aggressive coronary risks modification and smoking cessation. The findings and the recommendations were discussed with the patient and she was in full understanding and agreement. Duration of sedation is 13 minutes.
[2024-04-20] MEDS ORDERED: SODIUM CHLORIDE 0.9% 1,000 ML IV SCH (08:15)
[2024-04-20 14:40] VITALS: BP 86/65; PULSE 66
[2024-04-20] MEDS ORDERED: carvediloL 12.5 MG TAB PO SCH (17:30)
[2024-04-20] MEDS ORDERED: ATORVASTATIN 40 MG TAB PO SCH (21:00)
[2024-04-20] MEDS ORDERED: lisinopriL 5 MG TAB PO SCH (21:00)
[2024-04-21] MEDS ORDERED: SPIRONOLACTONE 25 MG TAB PO SCH (09:00)
[2024-04-21] MEDS ORDERED: ASPIRIN 81 MG PO SCH (09:00)
== END 2024-04-20 11:38 | disposition home or self-care (01) ==
LOC: CATHCVL 05:46
PROVIDERS: ATTEND Internal Medicine Interventional Cardiology
DX: I25.10 Atherosclerotic heart disease of native coronary artery without angina pectoris (principal); I25.84 Coronary atherosclerosis due to calcified coronary lesion; I42.8 Other cardiomyopathies; I10 Essential (primary) hypertension; E78.2 Mixed hyperlipidemia; F17.210 Nicotine dependence, cigarettes, uncomplicated; Z82.49 Family history of ischemic heart disease and other diseases of the circulatory system; I34.0 Nonrheumatic mitral (valve) insufficiency; Z79.82 Long term (current) use of aspirin; Z79.84 Long term (current) use of oral hypoglycemic drugs; Z79.899 Other long term (current) drug therapy
CPT/HCPCS: 93458; 80048; 85025; C1769 ×2; C1894; J2250; J1644 ×3; J2003; Q9967; J3010

== ENCOUNTER 2024-06-09 14:27 | Emergency (ER) | payer OTHER ==
[2024-06-09 14:38] VITALS: RESP 18
--- NOTE | 2024-06-09 14:50 | ED ---
SOB HPI - General Chief Complaint: Shortness of Breath Stated Complaint: Cough Time Seen by Provider: 06/09/24 14:39 Source: patient, RN notes reviewed Mode of arrival: ambulatory Limitations: no limitations - History of Present Illness Initial Comments: This is a 58-year-old female who presents to the emergency department for coughing and shortness of breath. States that it started 2 weeks ago. States that she initially feels like she had the flu, but states that the coughing and breathing difficulties will not go away. She does have a history of asthma but is unsure where her nebulizer is. Denies any chest pain. She does report possible sick contacts. MD Complaint: shortness of breath, cough - Related Data Home Medications Medication Instructions Recorded Confirmed Albuterol Sulfate [Albuterol 2 puff PO RT-Q4H PRN 12/08/23 04/20/24 Sulfate Hfa] Ipratropium-Albuterol Nebulize 3 ml INHALATION RT-TID 12/08/23 04/20/24 [Duoneb 0.5 mg-3 mg/3 ml Soln] Previous Rx's Medication Instructions Recorded Acetaminophen Tab [Tylenol] 325 mg PO Q6HR PRN tab 12/11/23 Aspirin 81 mg PO DAILY tab 12/11/23 Atorvastatin [Lipitor] 40 mg PO HS #90 tab 12/11/23 Dapagliflozin Propanediol [Farxiga] 10 mg PO DAILY #90 tab 12/11/23 Furosemide [Lasix] 20 mg PO DAILY #90 tab 12/11/23 Spironolactone [Aldactone] 25 mg PO DAILY #90 tab 12/11/23 carvediloL [Coreg*] 12.5 mg PO BID-W/MEALS #180 tab 12/11/23 lisinopriL [Zestril] 5 mg PO BID #180 tab 12/11/23 Azithromycin [Zithromax] 250 mg PO DIRECTED 5 Days #6 tab 06/09/24 Benzonatate [Tessalon Perle] 200 mg PO TID PRN #30 capsule 06/09/24 Ipratropium-Albuterol Nebulize 3 ml INHALATION Q4-6H PRN #90 ml 06/09/24 [Duoneb 0.5 mg-3 mg/3 ml Soln] predniSONE 50 mg PO DAILY 5 Days #5 tab 06/09/24 Allergies Allergy/AdvReac Type Severity Reaction Status Date / Time egg AdvReac Nausea & Verified 06/09/24 14:36 Vomiting & Diarrhea Review of Systems ROS Statement: Those systems with pertinent positive or pertinent negative responses have been documented in the HPI. ROS Other: All systems not noted in ROS Statement are negative. Past Medical History Past Medical History: Asthma, Hypertension, Myocardial Infarction ([place]) Last Myocardial Infarction Date:: 2019 History of Any Multi-Drug Resistant Organisms: None Reported Past Surgical History: Appendectomy, Breast Surgery, Cholecystectomy, Heart Catheterization, Hysterectomy Additional Past Surgical History / Comment(s): breast reduction, COLONOSCOPY Past Anesthesia/Blood Transfusion Reactions: Postoperative Nausea & Vomiting (PONV) Past Psychological History: No Psychological Hx Reported Smoking Status: Current every day smoker - Past Family History Father Family Medical History: Coronary Artery Disease (CAD) Mother Family Medical History: Coronary Artery Disease (CAD), Dementia Brother(s) Family Medical History: Cancer Sister(s) Family Medical History: Cancer General Exam Limitations: no limitations General appearance: alert, in no apparent distress Head exam: Present: atraumatic, normocephalic, normal inspection Respiratory exam: Present: wheezes, decreased breath sounds, prolonged expiratory Cardiovascular Exam: Present: regular rate, normal rhythm, normal heart sounds. Absent: systolic murmur, diastolic murmur, rubs, gallop, clicks Neurological exam: Present: alert, oriented X3, CN II-XII intact Psychiatric exam: Present: normal affect, normal mood Skin exam: Present: warm, dry, intact, normal color. Absent: rash Course Vital Signs 06/09/24 06/09/24 06/09/24 14:34 15:49 15:57 Temperature 97.5 F L Pulse Rate 79 99 99 Respiratory 18 18 Rate Blood Pressure 148/82 O2 Sat by Pulse 95 Oximetry Medical Decision Making - Medical Decision Making This is a 58 year old female who presents to the emergency department for shortness of breath and coughing. Was pt. sent in by a medical professional or institution? @ -No Did you speak to anyone other than the patient for history? @ -No Did you review nursing and triage notes? @ -Yes, and I agree, it is accurate with regards to the patient's symptoms. Were old charts reviewed? @ -No Differential Diagnosis? @ -Differential Dyspnea: Coronary syndrome, arrhythmia, tamponade, asthma, COPD, pulmonary embolism, pneumonia, pneumothorax, pulmonary effusion, anaphylaxis, diabetic ketoacidosis, flailed chest, pulmonary contusion, diaphragmatic rupture, anemia, neuromuscular, this is not meant to be an all-inclusive list. EKG interpreted by me (3pts min.)? @ -EKG interpreted by me demonstrating the following: Sinus rhythm. Ventricular rate 89 bpm, PA interval 154 ms, QRS duration 100 ms, QTc 417 ms. X-rays interpreted by me (1pt min.)? @ -[none] CT interpreted by me (1pt min.)? @ -[none] U/S interpreted by me (1pt. min.)? @ -[none] What testing was considered but not performed? (CT, X-rays, U/S, labs)? Why? @ -None What meds were considered but not given? Why? @ -None Did you discuss the management of the patient with other professionals? @ -No Did you reconcile home meds? @ -No Was smoking cessation discussed for >3mins.? @ -No Was critical care preformed (if so, how long)? @ -No Were there social determinants of health that impacted care today? How? (Homelessness, low income, unemployed, alcoholism, drug addiction, transportation, low edu. Level, literacy, decrease access to med. care, [facility], r ehab)? @ -No Was there de-escalation of care discussed even if they declined? (Discuss DNR or withdrawal of care, Hospice)? @ -No What co-morbidities impacted this encounter? (DM, HTN, Smoking, COPD, CAD, Cancer, CVA, Hep., AIDS, mental health diagnosis, sleep apnea, morbid obesity)? @ -Smoking, asthma Was patient admitted / discharged? @ -[hospital course] Undiagnosed new problem with uncertain prognosis? @ -None Drug Therapy requiring intensive monitoring for toxicity (Heparin, Nitro, Insulin, Cardizem)? @ -None Were any procedures done? @ -None Diagnosis/symptom? @ -[default] Acute, or Chronic, or Acute on Chronic? @ -[default] Uncomplicated (without systemic symptoms) or Complicated (systemic symptoms)? @ -[default] Side effects of treatment? @ -[none] Exacerbation, Progression, or Severe Exacerbation] @ -Not applicable Poses a threat to life or bodily function? @ -[no] - Lab Data Result diagrams: 06/09/24 14:59 06/09/24 14:59 Lab Results 06/09/24 06/09/24 06/09/24 Range/Units 14:59 14:59 14:59 WBC 12.9 H (3.8-10.6) k/uL RBC 5.00 (3.80-5.40) m/uL Hgb 15.3 (11.4-16.0) gm/dL Hct 47.0 H (34.0-46.0) % MCV 94.1 (80.0-100.0) fL MCH 30.6 (25.0-35.0) pg MCHC 32.5 (31.0-37.0) g/dL RDW 12.9 (11.5-15.5) % Plt Count 373 (150-450) k/uL MPV 7.4 Neutrophils % 76 % Lymphocytes % 18 % Monocytes % 3 % Eosinophils % 2 % Basophils % 1 % Neutrophils # 9.8 H (1.3-7.7) k/uL Lymphocytes # 2.3 (1.0-4.8) k/uL Monocytes # 0.4 (0-1.0) k/uL Eosinophils # 0.3 (0-0.7) k/uL Basophils # 0.1 (0-0.2) k/uL PT 10.9 (10.0-12.5) sec INR 1.0 (<1.2) APTT 25.2 (22.0-30.0) sec D-Dimer 0.41 (<0.60) mg/L FEU Sodium 139 (137-145) mmol/L Potassium 4.3 (3.5-5.1) mmol/L Chloride 101 (98-107) mmol/L Carbon Dioxide 28 (22-30) mmol/L Anion Gap 10 mmol/L BUN 26 H (7-17) mg/dL Creatinine 1.16 H (0.52-1.04) mg/dL Est GFR (CKD-EPI)AfAm 60 (>60 ml/min/1.73 sqM) Est GFR (CKD-EPI)NonAf 52 (>60 ml/min/1.73 sqM) Glucose 137 H (74-99) mg/dL Calcium 9.4 (8.4-10.2) mg/dL Total Bilirubin 1.0 (0.2-1.3) mg/dL AST 20 (14-36) U/L ALT 18 (4-34) U/L Alkaline Phosphatase 186 H (38-126) U/L NT-Pro-B Natriuret Pep 216 pg/mL Total Protein 7.7 (6.3-8.2) g/dL Albumin 4.4 (3.5-5.0) g/dL Influenza Type A (PCR) (Not Detectd) Influenza Type B (PCR) (Not Detectd) RSV (PCR) (Not Detectd) SARS-CoV-2 (PCR) (Not Detectd) 06/09/24 Range/Units 14:59 WBC (3.8-10.6) k/uL RBC (3.80-5.40) m/uL Hgb (11.4-16.0) gm/dL Hct (34.0-46.0) % MCV (80.0-100.0) fL MCH (25.0-35.0) pg MCHC (31.0-37.0) g/dL RDW (11.5-15.5) % Plt Count (150-450) k/uL MPV Neutrophils % % Lymphocytes % % Monocytes % % Eosinophils % % Basophils % % Neutrophils # (1.3-7.7) k/uL Lymphocytes # (1.0-4.8) k/uL Monocytes # (0-1.0) k/uL Eosinophils # (0-0.7) k/uL Basophils # (0-0.2) k/uL PT (10.0-12.5) sec INR (<1.2) APTT (22.0-30.0) sec D-Dimer (<0.60) mg/L FEU Sodium (137-145) mmol/L Potassium (3.5-5.1) mmol/L Chloride (98-107) mmol/L Carbon Dioxide (22-30) mmol/L Anion Gap mmol/L BUN (7-17) mg/dL Creatinine (0.52-1.04) mg/dL Est GFR (CKD-EPI)AfAm (>60 ml/min/1.73 sqM) Est GFR (CKD-EPI)NonAf (>60 ml/min/1.73 sqM) Glucose (74-99) mg/dL Calcium (8.4-10.2) mg/dL Total Bilirubin (0.2-1.3) mg/dL AST (14-36) U/L ALT (4-34) U/L Alkaline Phosphatase (38-126) U/L NT-Pro-B Natriuret Pep pg/mL Total Protein (6.3-8.2) g/dL Albumin (3.5-5.0) g/dL Influenza Type A (PCR) Not Detected (Not Detectd) Influenza Type B (PCR) Not Detected (Not Detectd) RSV (PCR) Not Detected (Not Detectd) SARS-CoV-2 (PCR) Not Detected (Not Detectd) - Radiology Data Radiology results: report reviewed, image reviewed Disposition Clinical Impression: Asthma exacerbation Disposition: HOME SELF-CARE Instructions (If sedation given, give patient instructions): Asthma (ED) Additional Instructions: Return to the emergency department with any new, worsening, or concerning s ymptoms. Take the antibiotic as prescribed for 5 days. Take the prednisone daily for 5 days. Take the Tessalon Perles up to every 8 hours as needed for coughing. Use the DuoNeb breathing treatments every 4-6 hours as needed. Follow up with your primary care provider in 1-2 days. Prescriptions: Ipratropium-Albuterol Nebulize [Duoneb 0.5 mg-3 mg/3 ml Soln] 3 ml INHALATION Q4-6H PRN #90 ml PRN Reason: Shortness Of Breath predniSONE 50 mg PO DAILY 5 Days #5 tab Benzonatate [Tessalon Perle] 200 mg PO TID PRN #30 capsule PRN Reason: Cough Azithromycin [Zithromax] 250 mg PO DIRECTED 5 Days #6 tab Is patient prescribed a controlled substance at d/c from ED?: No Referrals: None,Stated [Primary Care Provider] - 1-2 days Time of Disposition: 16:11
[2024-06-09] MEDS: methylPREDNISolone SOD SUCCI 125 MG/2 ML VIAL IM ONE (15:02)
[2024-06-09] MEDS: methylPREDNISolone SOD SUCCI 125 MG/2 ML VIAL IV STA (15:05)
[2024-06-09 15:09] LABS: Basophils # (A) 0.1 k/uL (0-0.2); Basophils % (A) 1 %; Eosinophils # (A) 0.3 k/uL (0-0.7); Eosinophils % (A) 2 %; HGB 15.3 gm/dL (11.4-16.0); Lymphocytes # (A) 2.3 k/uL (1.0-4.8); Lymphocytes % (A) 18 %; MCH 30.6 pg (25.0-35.0); MCHC 32.5 g/dL (31.0-37.0); MCV 94.1 fL (80.0-100.0); Mean Platelet Volume 7.4; Monocytes # (A) 0.4 k/uL (0-1.0); Monocytes % (A) 3 %; Neutrophils # (A) 9.8 k/uL (1.3-7.7); Neutrophils % (A) 76 %; Platelet Count 373 k/uL (150-450); RDW 12.9 % (11.5-15.5); WBC 12.9 k/uL (3.8-10.6)
[2024-06-09 15:25] LABS: Partial Thromboplastin Time 25.2 sec (22.0-30.0); Prothrombin Time 10.9 sec (10.0-12.5)
[2024-06-09 15:29] LABS: ALT 18 U/L (4-34); AST 20 U/L (14-36); African American GFR (CKD) 60 (>60 ml/min/1.73 sqM); Albumin 4.4 g/dL (3.5-5.0); Alkaline Phosphatase 186 U/L (38-126); Anion Gap 10 mmol/L; Blood Urea Nitrogen 26 mg/dL (7-17); Calcium 9.4 mg/dL (8.4-10.2); Carbon Dioxide 28 mmol/L (22-30); Chloride 101 mmol/L (98-107); Glucose 137 mg/dL (74-99); Non-African American GFR(CKD) 52 (>60 ml/min/1.73 sqM); Potassium 4.3 mmol/L (3.5-5.1); Sodium 139 mmol/L (137-145); Total Protein 7.7 g/dL (6.3-8.2)
[2024-06-09 15:37] LABS: NT-Pro-B-Type Natriuretic Pept 216 pg/mL
--- NOTE | 2024-06-09 15:45 | XR ---
EXAMINATION TYPE: XR chest 2V DATE OF EXAM: 06/09/2024 3:35 PM COMPARISON: Chest radiographs from 12/07/2023 CLINICAL INDICATION: Female, 58 years old with history of Cough, RACHEL; TECHNIQUE: XR chest 2V Frontal and lateral views of the chest. FINDINGS: Lungs/Pleura: There is no evidence of pleural effusion, focal consolidation, or pneumothorax. Pulmonary vascularity: Unremarkable. Heart/mediastinum: Cardiomediastinal silhouette is unremarkable. Musculoskeletal: No acute osseous pathology. IMPRESSION: No acute cardiopulmonary disease/process. [facility], , 06/09/2024 3:43 PM
[2024-06-09] MEDS: IPRATROPIUM-ALBUTEROL 3 ML NEB INHALATION STA (15:49)
[2024-06-09 16:37] VITALS: BP 110/78; PULSE 73; TEMP 97.8
== END 2024-06-09 16:37 | disposition home or self-care (01) ==
LOC: EC 14:27
DX: J45.901 Unspecified asthma with (acute) exacerbation (principal); F17.200 Nicotine dependence, unspecified, uncomplicated; Z91.012 Allergy to eggs
CPT/HCPCS: 36415; 94640; 93005; 85379; 83880; 80053; 85025; 85610; 85730; 87636; 71046; 99285; 96374; J2919

== ENCOUNTER 2024-10-14 18:15 | Emergency (ER) | payer OTHER ==
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
[2024-10-14 20:59] VITALS: BP 169/91; PULSE 95; RESP 18; TEMP 97.7
== END 2024-10-14 20:59 | disposition home or self-care (01) ==
LOC: EC 18:15
DX: S70.02XA Contusion of left hip, initial encounter (principal); F17.200 Nicotine dependence, unspecified, uncomplicated; Z91.012 Allergy to eggs; V49.40XA Driver injured in collision with unspecified motor vehicles in traffic accident, initial encounter; W22.09XA Striking against other stationary object, initial encounter; X50.9XXA Other and unspecified overexertion or strenuous movements or postures, initial encounter
CPT/HCPCS: 99284